=== PATIENT | male | born 1985 | race Caucasian/White ===

== ENCOUNTER 2019-04-18 10:15 | Outpatient (CLI) | payer BC, SELFPAY ==
[2019-04-18 10:58] LABS: Alanine Aminotransferase 36 U/L (4-50); Albumin Level 4.6 g/dL (3.5-5.1); Alkaline Phosphatase 73 U/L (38-126); Aspartate Amino Transferase 32 U/L (17-59); Bilirubin,Total 0.5 mg/dL (0.2-1.3); Blood Urea Nitrogen 15 mg/dL (9-20); Calcium 9.3 mg/dL (8.4-10.2); Carbon Dioxide 28 mmol/L (22-30); Chloride 99 mmol/L (98-107); Cholesterol 197 mg/dL (0-200); Estimated Glomerular Filt Rate > 60; Glucose 108 mg/dL (75-110); HDL Direct 48 mg/dL; Potassium 4.1 mmol/L (3.4-5.0); Sodium 137 mmol/L (137-145); Triglycerides 121 mg/dL (<150)
[2019-04-18 11:08] LABS: LDL Cholesterol Direct 130 mg/dL
[2019-04-20 05:00] LABS: GGT 14 U/L (3-90)
== END 2019-04-18 10:16 | disposition home or self-care (01) ==
PROVIDERS: PCP Family Medicine; Visit Provider Nurse Practitioner Family
DX: R74.0 Nonspecific elevation of levels of transaminase and lactic acid dehydrogenase [LDH] (principal)
CPT/HCPCS: 36415; 80053; 80061; 82977

== ENCOUNTER → 2019-04-24 10:44 | Outpatient (CLI) | payer BC, SELFPAY ==
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
== END ==
PROVIDERS: PCP Family Medicine; Visit Provider Nurse Practitioner Family
DX: Z87.820 Personal history of traumatic brain injury (principal); Z09 Encounter for follow-up examination after completed treatment for conditions other than malignant neoplasm
CPT/HCPCS: 70470; Q9967

== ENCOUNTER 2019-05-04 13:54 | Outpatient (CLI) | payer BC, SELFPAY ==
[2019-05-08 14:10] LABS: Lyme Disease Ab (IgM), Blot Negative (Negative); Lyme Disease Ab(IgG), Blot Negative (Negative)
== END 2019-05-04 13:55 | disposition home or self-care (01) ==
LOC: ANHLAB 13:56
PROVIDERS: PCP Family Medicine; Visit Provider Nurse Practitioner Family
DX: G25.81 Restless legs syndrome (principal); Z86.19 Personal history of other infectious and parasitic diseases; R53.83 Other fatigue
CPT/HCPCS: 36415; 82607; 86617

== ENCOUNTER 2019-05-31 08:38 | Outpatient (CLI) | payer BC, SELFPAY ==
--- NOTE | 2019-05-31 11:00 | NEURO_ITS ---
Patient Number: [id number] Impression: # Complains of restless leg syndrome and pain. # Normal nerve conduction study including F-waves. # Normal needle/EMG exam without myotonia or denervation potentials. Nerve Conduction Studies Anti Sensory Summary Table Stim Site NR Peak (ms) P-T Amp (?V) Site1 Site2 Delta-P (ms) Dist (cm) Harrison (m/s) Left Sup Fibular Anti Sensory (Ant Lat Mall) 14 cm 3.9 11.3 14 cm Ant Lat Mall 3.9 16.0 41 Right Sup Fibular Anti Sensory (Ant Lat Mall) 14 cm 3.7 11.9 14 cm Ant Lat Mall 3.7 16.0 43 Left Sural Anti Sensory (Lat Mall) Calf 3.8 16.2 Calf Lat Mall 3.8 16.0 42 Right Sural Anti Sensory (Lat Mall) Calf 3.9 20.5 Calf Lat Mall 3.9 16.0 41 Motor Summary Table Stim Site NR Onset (ms) O-P Amp (mV) Site1 Site2 Delta-0 (ms) Dist (cm) Harrison (m/s) Left Peroneal Motor (Vastus Med) Ankle 5.5 2.3 Popit Ankle 8.7 41.0 47 Popit 14.2 2.3 Right Peroneal Motor (Vastus Med) Ankle 5.6 2.5 Popit Ankle 6.9 37.0 54 Popit 12.5 2.5 Left Tibial Motor (Abd Valdez Brev) Ankle 5.2 3.9 Knee Ankle 8.3 42.0 51 Knee 13.5 5.0 Right Tibial Motor (Abd Valdez Brev) Ankle 5.0 7.0 Knee Ankle 8.0 43.0 54 Knee 13.0 5.9 F Wave Studies NR F-Lat (ms) L-R F-Lat (ms) Left Peroneal (Mrkrs) (EDB) 52.39 0.43 Right Peroneal (Mrkrs) (EDB) 52.82 0.43 Left Tibial (Mrkrs) (Abd Hallucis) 51.88 0.47 Right Tibial (Mrkrs) (Abd Hallucis) 51.40 0.47 EMG Side Muscle Nerve Root Ins Act Fibs Amp Dur Recrt Comment Right AntTibialis Dp Br Fibular L4-5 Nml Nml Nml Nml Nml Right Gastroc Tibial S1-2 Nml Nml Nml Nml Nml Right Fibularis Long Sup Br Fibular L5-S1 Nml Nml Nml Nml Nml Right Flex Dig Long Tibial L5-S2 Nml Nml Nml Nml Nml Right Ext Dig Brev Dp Br Fibular L5, S1 Nml Nml Nml Nml Nml Left AntTibialis Dp Br Fibular L4-5 Nml Nml Nml Nml Nml Left Gastroc Tibial S1-2 Nml Nml Nml Nml Nml Left Fibularis Long Sup Br Fibular L5-S1 Nml Nml Nml Nml Nml Left Flex Dig Long Tibial L5-S2 Nml Nml Nml Nml Nml Left Ext Dig Brev Dp Br Fibular L5, S1 Nml Nml Nml Nml Nml Right QuadratusFem QuadFemoris L4-5, S1 Nml Nml Nml Nml Nml Left QuadratusFem QuadFemoris L4-5, S1 Nml Nml Nml Nml Nml MTDD
== END 2019-05-31 08:39 | disposition home or self-care (01) ==
PROVIDERS: PCP Family Medicine; Visit Provider Nurse Practitioner Family
DX: R20.2 Paresthesia of skin (principal)
CPT/HCPCS: 95886; 95910

== ENCOUNTER 2019-11-06 15:26 | Emergency (ER) | payer BC, SELFPAY ==
--- NOTE | ~2019-11-06 | XR_ITS ---
EXAMINATION: XR foot RT min 3V EXAM DATE: 11/06/2019 15:52 INDICATION: No known recent injury provided at this time. Pain of the right foot, heel. TECHNIQUE: Right foot dorsoplantar, lateral and oblique projections obtained and reviewed. There is no prior study for comparison. FINDINGS: Right metatarsal bones unremarkable. No periosteal reaction or band of sclerosis to sugge st subacute stress fracture. There are no bony erosions identified. There are no acute fractures or d islocations identified. There is no subcutaneous gas. The soft tissue is unremarkable. There are no radiopaque foreign bodies. IMPRESSION: 1. Unremarkable right foot exam. Reviewed, dictated and finalized at location B.
--- NOTE | 2019-11-06 15:33 | ED.GENADULT ---
HPI - General Adult General Chief complaint: Extremity Injury, Lower Stated complaint: R/foot pain Time Seen by Provider: 11/06/19 15:40 Source: patient and RN notes reviewed Mode of arrival: ambulatory Limitations: no limitations History of Present Illness HPI narrative: This is a 34 years old male presents to the office for an evaluation of right foot pain for a few month. Pain is continue to worsen which prompt him to seek evaluation. In used to be intermittent and now more constant. Pain is worse in the morning. Denies no known trauma or injury prior to pain. Admits to history of rolling his ankles a lot but never had a broken ankle or foot in the past. He have never had this pain before. He did not take anything for pain. Related Data Allergies Allergy/AdvReac Type Severity Reaction Status Date / Time Sulfa (Sulfonamide Allergy Severe ANAPHYLACTIC Verified 09/26/19 09:43 Antibiotics) REACTION Review of Systems Review of Systems: Narrative: CONSTITUTIONAL: Denies fever ENT: Denies rhinorrhea, congestion, sore throat, otalgia. CARDIOVASCULAR: Denies chest pain, palpitation RESPIRATORY: Denies dyspnea, wheezing, cough GASTROINTESTINAL: Denies abdominal pain, nausea, vomiting, diarrhea. SKIN: Denies rash/lesions MUSCULOSKELETAL: Reports right heel pain that goes up to his ankle with tingling/numbness sensation on his toes. Denies back injury/trauma. NEUROLOGIC: Denies lightheaded All other systems reviewed are negative, except as documented in HPI. [facility] Past Medical History Medical History Fracture of temporal bone GERD (gastroesophageal reflux disease) HTN (hypertension) Migraines Pneumonia Surgical History Surgical History Hx of eye surgery Family History Family History Other Diabetes mellitus Family history of cardiovascular disease Hypertension Social History Social History Smoking status: Current some day smoker Alcohol intake: current Gender identity (if verbalized by the patient): Male Comments At time of signature, I agree with nursing past medical, surgical, social and family history. There is no relevant family history pertinent to the presenting complaint. Exam Narrative: Exam Narrative: GENERAL: This is a well-nourished, well-developed patient, in no apparent distress. CARDIOVASCULAR: Regular rate and rhythm without murmurs, gallops, or rubs. RESPIRATORY: Clear to auscultation. Breath sounds equal bilaterally. No wheezes, rales, or rhonchi. GASTROINTESTINAL: Abdomen soft, non-tender, nondistended. Bowel sounds are active. No hepato-splenomegaly, or palpable masses. No guarding. SKIN: warm, intact with no suspicious lesions or rash, good texture and turgor. NEURO: awake, alert, and oriented to person, place and time. There were no obvious focal neurologic abnormalities. Steady gait EXTREMITIES: Normal range of motion. No edema. The Affected lateral and medial ankle not swollen. Dorsal foot normal without obvious deformity/swelling. Heel is tender to palpation without obvious callus/corn/blister. Plantar and dorsal flexion of foot is intact. The skin is intact. Goldie Coma Scale Eye Opening: Spontaneous 4 Goldie Coma Scale Motor: Obeys Commands 6 Goldie Coma Scale Verbal: Oriented 5 Course Vital Signs Vital signs: Vital Signs Temperature 99.2 F 11/06/19 15:35 Pulse Rate 76 11/06/19 15:35 Respiratory Rate 11/06/19 15:35 Blood Pressure 168/109 H 11/06/19 15:35 Pulse Oximetry 100 11/06/19 15:35 Temperature 99.2 F 11/06/19 15:35 Pulse Rate 76 11/06/19 15:35 Respiratory Rate 11/06/19 15:35 Blood Pressure 168/109 H 11/06/19 15:35 Pulse Oximetry 100 11/06/19 15:35 Medical Decision Making [facility] Narrative Medical
[2019-11-06 15:35] VITALS: BP 168/109; PULSE 76; RESP 20; TEMP 37.3; O2SAT 100
== END 2019-11-06 16:11 | disposition home or self-care (01) ==
PROVIDERS: Emergency Provider Nurse Practitioner; PCP Family Medicine
DX: M79.644 Pain in right finger(s) (principal); F17.200 Nicotine dependence, unspecified, uncomplicated; K21.9 Gastro-esophageal reflux disease without esophagitis; I10 Essential (primary) hypertension
CPT/HCPCS: 73630; 99213; G0463

== ENCOUNTER 2019-11-28 18:00 | Emergency (ER) | payer BC, SELFPAY ==
[2019-11-28 18:10] VITALS: BP 144/102; PULSE 81; RESP 20; TEMP 37.2; O2SAT 98
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
== END 2019-11-28 18:32 | disposition home or self-care (01) ==
PROVIDERS: Emergency Provider Nurse Practitioner; PCP Family Medicine
DX: S29.012A Strain of muscle and tendon of back wall of thorax, initial encounter (principal); S16.1XXA Strain of muscle, fascia and tendon at neck level, initial encounter; W01.0XXA Fall on same level from slipping, tripping and stumbling without subsequent striking against object, initial encounter; F17.200 Nicotine dependence, unspecified, uncomplicated
CPT/HCPCS: 99213; G0463

== ENCOUNTER 2019-11-29 13:52 | Outpatient (CLI) | payer BC, SELFPAY ==
--- NOTE | ~2019-11-29 | XR_ITS ---
XR lumbar spine 2-3V DATE: 11/29/2019 14:24 INDICATION: Back pain. Injury 4 days ago. TECHNIQUE: AP, lateral, coned lateral lumbosacral views COMPARISON: 07/10/2015 lumbar spine FINDINGS: Normal alignment of the lumbar vertebrae. No fracture or bone destruction or spondylolisthe sis. The lumbar and lumbosacral interspaces are well preserved. The lumbar pedicles are intact. The s acroiliac joints are normal. IMPRESSION: Normal examination Reviewed, dictated and finalized at location A. IMPRESSION: Normal examination
== END 2019-11-29 13:53 | disposition home or self-care (01) ==
LOC: ANHIMG 13:58
PROVIDERS: PCP Family Medicine; Visit Provider Nurse Practitioner Family
DX: M54.9 Dorsalgia, unspecified (principal)
CPT/HCPCS: 72100

== ENCOUNTER 2019-12-01 09:45 | Outpatient (CLI) | payer BC, SELFPAY ==
[2019-12-01 10:04] LABS: Hematocrit 45.3 % (42.0-52.0); Hemoglobin 15.3 g/dL (14.0-18.0); Mean Corpuscular HGB Conc 33.8 g/dl (32-36); Mean Corpuscular Hemoglobin 29.7 pg (26-34); Mean Platelet Volume 9.9 fl (7.4-10.4); Platelet Count Result 209 k/mm3 (150-375); Red Blood Count 5.15 M/mm3 (4.6-6.20); Red Cell Distribution Width 12.7 % (11.5-14.5); White Blood Count 4.9 K/mm3 (4.5-10.0)
[2019-12-01 10:06] LABS: Add Urine Microscopic? NO; Appearance Urine Clear (Clear); Bilirubin Urine Negative (Negative); Blood Urine Negative (Negative); Color Urine Yellow (Yellow); Glucose Urine UA Negative (Negative); Ketones Urine Negative (Negative); Leukocyte Esterase Ur Negative LEU/UL (Negative); Nitrate Urine Negative (Negative); Protein Urine Negative (Negative); Specific Grav Ur 1.028 (1.001-1.035); Urobilinogen Urine Negative mg/dL (<2.0)
[2019-12-01 10:16] LABS: Anion Gap 5 mmol/L (8-16); Blood Urea Nitrogen 21 mg/dL (9-20); Calcium 8.9 mg/dL (8.4-10.2); Carbon Dioxide 31 mmol/L (22-30); Chloride 102 mmol/L (98-107); Estimated Glomerular Filt Rate > 60; Glucose 98 mg/dL (75-110); Potassium 4.3 mmol/L (3.4-5.0); Sodium 138 mmol/L (137-145)
== END 2019-12-01 09:46 | disposition home or self-care (01) ==
PROVIDERS: PCP Family Medicine; Visit Provider Nurse Practitioner Family
DX: M54.9 Dorsalgia, unspecified (principal); T14.90XA Injury, unspecified, initial encounter
CPT/HCPCS: 36415; 80048; 81003; 85027

== ENCOUNTER 2020-01-30 06:51 | Outpatient (NON) | payer BC, SELFPAY ==
[2020-01-31 00:30] LABS: SARS-CoV-2 RNA PCR Negative
== END 2020-01-30 06:52 ==
LOC: ANHCOVIDDT 07:01
PROVIDERS: PCP Family Medicine; Visit Provider Nurse Practitioner Family
DX: Z20.828 Contact with and (suspected) exposure to other viral communicable diseases (principal)
CPT/HCPCS: 87635; C9803; U0003

== ENCOUNTER 2020-02-10 06:40 | Outpatient (NON) | payer BC, SELFPAY ==
[2020-02-10 23:37] LABS: SARS-CoV-2 RNA PCR Negative
== END 2020-02-10 06:41 ==
LOC: ANHCOVIDDT 06:40
PROVIDERS: PCP Family Medicine; Visit Provider Family Medicine
DX: R68.89 Other general symptoms and signs (principal); Z20.828 Contact with and (suspected) exposure to other viral communicable diseases
CPT/HCPCS: 87635; C9803; U0003

== ENCOUNTER 2020-04-23 11:14 | Outpatient (NON) | payer BC, OTHER, SELFPAY ==
[2020-04-24 00:37] LABS: SARS-CoV-2 RNA PCR Negative
== END 2020-04-23 11:15 ==
LOC: ANHCOVIDDT 11:15
PROVIDERS: PCP Family Medicine; Visit Provider Physician Assistant Medical
DX: Z20.822 Contact with and (suspected) exposure to COVID-19 (principal); R68.89 Other general symptoms and signs
CPT/HCPCS: C9803; U0003; U0005

== ENCOUNTER 2020-10-06 04:14 | Emergency (ER) | payer BC, OTHER, SELFPAY ==
--- NOTE | ~2020-10-06 | CT_ITS ---
EXAMINATION: CT cervical spine wo con DATE: 10/06/2020 05:05 INDICATION: Head injury TECHNIQUE: Computed tomography (CT) of the cervical spine was performed without intravenous contrast. The dose-length product (DLP) was 423.60 mGy-cm. Automated exposure control and iterative reconstruc tion technique were employed. COMPARISON: None FINDINGS: There is no fracture, dislocation, or subluxation. The vertebral body heights, alignment, a nd intervertebral disc spaces are normal. The paravertebral soft tissues are unremarkable. The odonto id is intact. IMPRESSION: 1. No acute osseous abnormality. Reviewed, dictated and finalized at location A.
--- NOTE | ~2020-10-06 | XR_ITS ---
EXAMINATION: XR elbow LT min 3V DATE: 10/06/2020 04:44 INDICATION: Left elbow pain TECHNIQUE: Anteroposterior, two oblique and lateral views of the left elbow were obtained. COMPARISON: None. FINDINGS: Alignment is normal. No fracture or joint effusion. Joint spaces are normal. Soft tissues a re unremarkable. An enthesophyte projects at the dorsal aspect of the ulna. IMPRESSION: 1. No acute osseous abnormality. Reviewed, dictated and finalized at location A.
--- NOTE | ~2020-10-06 | CT_ITS ---
EXAMINATION: CT brain wo con INDICATION: Head injury COMPARISON: 04/24/2019 TECHNIQUE: Standard unenhanced head CT. The dose-length product (DLP) was 605.33 mGy-cm. The mA was a djusted according to patient size. Iterative reconstruction technique was employed. FINDINGS: There is no intracranial hemorrhage, acute infarction, or abnormal mass lesion. The ventric les are normal. There is no abnormal mass effect or midline shift. The oropeza-white matter differentiat ion is normal. The basal cisterns are patent. The orbits are normal. There is mild mucosal thickening of the paranasal sinuses. IMPRESSION: 1. No acute intracranial abnormality. Reviewed, dictated and finalized at location A.
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
[2020-10-06 04:18] VITALS: BP 154/88; PULSE 93; RESP 16; TEMP 36.3; O2SAT 98
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
[2020-10-06 04:51] LABS: Basophils Percent Auto 0.6 % (0.2-1.2); Eosinophils Absolute Auto 0.2 K/mm3 (0-0.3); Eosinophils Percent Auto 3.1 % (0-4.4); Hematocrit 40.7 % (42.0-52.0); Hemoglobin 14.2 g/dL (14.0-18.0); Immature Granulocyte Absolute 0.03 K/mm3 (0.00-0.031); Immature Granulocyte Percent A 0.4 % (0-0.5); Lymphocytes Absolute Auto 2.14 K/mm3 (0.9-3.2); Lymphocytes Percent Auto 30.2 % (18.3-44.2); Mean Corpuscular HGB Conc 34.9 g/dl (32-36); Mean Corpuscular Hemoglobin 30.1 pg (26-34); Mean Corpuscular Volume 86.2 fl (80-100); Mean Platelet Volume 9.5 fl (7.4-10.4); Monocytes Absolute Auto 0.5 K/mm3 (0.1-0.6); Monocytes Percent Auto 7.2 % (2.6-8.5); Neutrophils Absolute Auto 4.1 K/mm3 (1.3-6.7); Neutrophils Percent Auto 58.5 % (45.5-73.1); Platelet Count Result 242 k/mm3 (150-375); Red Blood Count 4.72 M/mm3 (4.6-6.20); Red Cell Distribution Width 12.5 % (11.5-14.5); White Blood Count 7.1 K/mm3 (4.5-10.0)
[2020-10-06 05:00] LABS: Alanine Aminotransferase 33 U/L (4-50); Albumin Level 4.6 g/dL (3.5-5.1); Alkaline Phosphatase 94 U/L (38-126); Anion Gap 14 mmol/L (8-16); Aspartate Amino Transferase 50 U/L (17-59); Bilirubin,Total 0.3 mg/dL (0.2-1.3); Blood Urea Nitrogen 16 mg/dL (9-20); Calcium 8.8 mg/dL (8.4-10.2); Carbon Dioxide 21 mmol/L (22-30); Chloride 106 mmol/L (98-107); Estimated Glomerular Filt Rate > 60; Ethanol 175 mg/dL (<10); Glucose 94 mg/dL (65-110); Potassium 3.6 mmol/L (3.4-5.0); Sodium 141 mmol/L (137-145)
[2020-10-06 05:05] LABS: INR 0.9; Prothrombin Time 11.6 Seconds (11.1-14.7)
[2020-10-06 05:06] LABS: Partial Thromboplastin Time 26.3 SECONDS (22.3-36.8)
[2020-10-06 05:11] LABS: Estimated Glomerular Filt Rate > 60
[2020-10-06 05:12] VITALS: BP 122/77; PULSE 83; RESP 16; O2SAT 97
[2020-10-06 05:14] VITALS: O2SAT 97
[2020-10-06] MEDS: TETANUS,DIPHTHERIA,AC PERTUSSIS ADULT (0.5 ML) BOOSTRIX IM (05:19)
== END 2020-10-06 05:57 | disposition home or self-care (01) ==
LOC: ANHED 05:26
PROVIDERS: Emergency Provider Emergency Medicine; PCP Family Medicine
DX: S50.02XA Contusion of left elbow, initial encounter (principal); S50.312A Abrasion of left elbow, initial encounter; S09.90XA Unspecified injury of head, initial encounter; K21.9 Gastro-esophageal reflux disease without esophagitis; I10 Essential (primary) hypertension; Z87.01 Personal history of pneumonia (recurrent); F17.210 Nicotine dependence, cigarettes, uncomplicated; Z23 Encounter for immunization; V09.20XA Pedestrian injured in traffic accident involving unspecified motor vehicles, initial encounter
CPT/HCPCS: 36415; 70450; 71250; 72125; 73080; 74176; 80053; 80307; 85025; 85610; 85730; 90471; 90715; 99284; A4565

== ENCOUNTER → 2021-01-14 10:03 | Outpatient (CLI) | payer BC, OTHER, SELFPAY ==
--- NOTE | ~2021-01-14 | XR_ITS ---
EXAMINATION: XR lumbar spine 2-3V DATE: 01/14/2021 10:42 INDICATION: Low back pain TECHNIQUE: Anteroposterior and lateral views of the lumbar spine, and cone-down lateral view of the l umbosacral junction were obtained. COMPARISON: 11/29/2019 FINDINGS: There is no fracture, dislocation, or subluxation. The vertebral body heights, alignment, a nd intervertebral disc spaces are normal. The soft tissues are unremarkable. The bowel gas pattern is normal. IMPRESSION: 1. Unremarkable lumbar spine radiographs. Reviewed, dictated and finalized at location A.
== END ==
PROVIDERS: PCP Family Medicine; Visit Provider Nurse Practitioner Family
DX: M54.50 Low back pain, unspecified (principal)
CPT/HCPCS: 72100

== ENCOUNTER → 2021-02-06 08:19 | Outpatient (CLI) | payer BC, OTHER, SELFPAY ==
--- NOTE | ~2021-02-06 | MR_ITS ---
EXAMINATION: MR lumbar spine wo con DATE: 02/06/2021 09:00 INDICATION: Low back pain, unspecified. TECHNIQUE: Magnetic resonance imaging (MRI) of the lumbar spine was performed without intravenous con trast. Sequences included sagittal T2-weighted FSE, sagittal T2-weighted FS FSE, sagittal T1-weighted FSE, and axial T2-weighted FSE. COMPARISON: Lumbar spine radiographs 01/14/2021 FINDINGS: Bone alignment is normal. Vertebral body heights are normal. There is mildly decreased disc height at L4-L5 and L5-S1. The distal spinal cord signal intensity is normal. The conus medullaris i s at T12. The following disc levels are specifically discussed: L1-L2: The disc does not extend beyond the endplate margin. There is mild bilateral facet joint osteo arthritis. There is no neural foraminal stenosis. There is no central canal stenosis. L2-L3: The disc does not extend beyond the endplate margin. There is mild bilateral facet joint osteo arthritis. There is no neural foraminal stenosis. There is no central canal stenosis. L3-L4: The disc does not extend beyond the endplate margin. There is moderate bilateral facet joint o steoarthritis. There is no neural foraminal stenosis. There is no central canal stenosis. L4-L5: The disc is bulging and has an annular fissure. There is severe right and moderate left facet joint osteoarthritis. There is moderate bilateral neural foraminal stenosis. There is mild central ca nal stenosis. L5-S1: The disc is bulging and has an annular fissure. There is mild right and moderate left facet mary int osteoarthritis. There is mild right and moderate left neural foraminal stenosis. There is mild ce ntral canal stenosis. IMPRESSION: 1. Moderate lower lumbar spondylosis. Reviewed, dictated and finalized at location A. DATION LEADER
== END ==
PROVIDERS: Visit Provider Nurse Practitioner Family
DX: M54.50 Low back pain, unspecified (principal); V09.9XXA Pedestrian injured in unspecified transport accident, initial encounter; M47.816 Spondylosis without myelopathy or radiculopathy, lumbar region
CPT/HCPCS: 72148

== ENCOUNTER → 2021-03-28 10:07 | Outpatient (CLI) | payer BC, SELFPAY ==
--- NOTE | ~2021-03-28 | XR_ITS ---
EXAMINATION: XR chest 2V DATE: 03/28/2021 10:23 INDICATION: Wheezing. Chest pain. TECHNIQUE: Frontal and lateral views of the chest were obtained. COMPARISON: Chest CT 10/06/2020, chest 2 views 02/19/2019 FINDINGS: The chest demonstrates clear lungs without pneumonia, pleural effusion, or pneumothorax. Th e heart size is normal. There is a prominent left paracardial fat pad. IMPRESSION: 1. No acute cardiopulmonary disease. Reviewed, dictated and finalized at location A. E LAB ANALYST
== END ==
PROVIDERS: PCP Family Medicine; Visit Provider Nurse Practitioner Family
DX: R06.2 Wheezing (principal)
CPT/HCPCS: 71046

== ENCOUNTER 2022-02-09 08:46 | Outpatient (CLI) | payer BC, SELFPAY ==
--- NOTE | ~2022-02-09 | MR_ITS ---
EXAMINATION: MR lumbar spine wo/w con DATE: 02/09/2022 10:16 INDICATION: Low back pain. TECHNIQUE: Magnetic resonance imaging (MRI) of the lumbar spine was performed without and with 20 mL MultiHance intravenous contrast. COMPARISON: Lumbar spine MRI 02/06/2021 FINDINGS: Bone alignment is normal. Vertebral body heights are normal. There are changes of anterior and posterior fusion procedures from L4 to S1 with discectomies, interbody devices, and pedicle screw s. Intervertebral disc heights are normal. The distal spinal cord signal intensity is normal. The con us medullaris is at T12. The following disc levels are specifically discussed: L1-L2: The disc does not extend beyond the endplate margin. There is no facet joint osteoarthritis. T here is no neural foraminal stenosis. There is no central canal stenosis. L2-L3: The disc does not extend beyond the endplate margin. There is mild right facet joint osteoarth ritis. There is no neural foraminal stenosis. There is no central canal stenosis. L3-L4: There is a left foraminal protrusion. There is mild bilateral facet joint osteoarthritis. Ther e is mild left neural foraminal stenosis. There is no central canal stenosis. L4-L5: There is mild bilateral facet joint hypertrophy. There is mild bilateral neural foraminal sten osis. There is no central canal stenosis. L5-S1: There is mild bilateral facet joint hypertrophy. There is mild bilateral neural foraminal sten osis. There is no central canal stenosis. IMPRESSION: 1. Mild lumbar spondylosis. 2. Anterior and posterior fusion procedures from L4 to S1. Reviewed, dictated and finalized at location A. RINTENDENT SYSTEM OPERATION
== END 2022-02-09 08:47 | disposition home or self-care (01) ==
PROVIDERS: PCP Family Medicine; Visit Provider Neurological Surgery
DX: M47.896 Other spondylosis, lumbar region (principal); Z98.1 Arthrodesis status
CPT/HCPCS: 72158; A9577

== ENCOUNTER 2022-06-05 15:56 | Outpatient (CLI) | payer BC, SELFPAY ==
--- NOTE | ~2022-06-05 | CT_ITS ---
EXAMINATION: CT lumbar spine wo con DATE: 06/05/2022 16:27 INDICATION: Lumbar posterior fusion. TECHNIQUE: Computed tomography (CT) of the lumbar spine was performed without intravenous contrast. A utomated exposure control and iterative reconstruction technique were employed. The dose-length produ ct was 1083.90 mGy-cm. COMPARISON: Lumbar spine MRI 02/09/2022 FINDINGS: There is diffuse hepatic steatosis. Bone alignment is normal. There is mild chronic anterio r wedging of T11-L1 vertebral bodies, likely physiologic. There are changes of anterior and posterior fusion procedures from L4 to S1 with interbody devices and pedicle screws. Intervertebral disc heigh ts are normal. The following disc levels are specifically discussed: L1-L2: The disc does not extend beyond the endplate margin. There is mild bilateral facet joint osteo arthritis. There is no neural foraminal stenosis. There is no central canal stenosis. L2-L3: The disc does not extend beyond the endplate margin. There is mild bilateral facet joint osteo arthritis. There is no neural foraminal stenosis. There is no central canal stenosis. L3-L4: The disc is mildly bulging. There is mild bilateral facet joint osteoarthritis. There is mild bilateral neural foraminal stenosis. There is no central canal stenosis. L4-L5: There is no facet joint hypertrophy. There is mild bilateral neural foraminal stenosis. There is no central canal stenosis. There is posterior decompression. L5-S1: There is no facet joint hypertrophy. There is no neural foraminal stenosis. There is no centra l canal stenosis. There is posterior decompression. IMPRESSION: 1. Mild lumbar spondylosis. 2. Anterior and posterior fusion procedures from L4 to S1. Reviewed, dictated and finalized at location A.
== END 2022-06-05 15:57 | disposition home or self-care (01) ==
PROVIDERS: PCP Family Medicine; Visit Provider Neurological Surgery
DX: M47.816 Spondylosis without myelopathy or radiculopathy, lumbar region (principal); Z98.1 Arthrodesis status
CPT/HCPCS: 72131

== ENCOUNTER → 2023-03-09 09:47 | Outpatient (CLI) | payer BC, SELFPAY ==
--- NOTE | ~2023-03-09 | XR_ITS ---
Lumbosacral Spine: AP and lateral views Clinical History: Postoperative COMPARISON: 01/14/2021 Findings: The normal lordotic curve is maintained. No acute fracture or subluxation seen. There is po sterior interbody fusion extending from L4 through S1. Remaining disc spaces are preserved. The sacro iliac joints are normally outlined. Impression: Posterior and interbody fusion from L4 through S1. Reviewed, dictated and finalized at location . 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
== END ==
PROVIDERS: PCP Family Medicine; Visit Provider Nurse Practitioner Family
DX: M43.27 Fusion of spine, lumbosacral region (principal); Z98.890 Other specified postprocedural states
CPT/HCPCS: 72100

== ENCOUNTER → 2023-04-01 08:19 | Outpatient (CLI) | payer BC, SELFPAY ==
--- NOTE | ~2023-04-01 | MR_ITS ---
MRI of the lumbar spine Clinical History: Back pain, postprocedural Technique: Axial T2-weighted images, and sagittal T1-weighted, T2-weighted, and STIR images were acqu ired. Following intravenous administration of 18 cc MultiHance gadolinium, T1-weighted fat-sat imagin g was performed in the axial and sagittal planes. COMPARISON: 02/09/2022 Findings: There is posterior interbody fusion from L4 through S1, with bilateral rods, transverse and screws, and disc fusion devices present. There are associated laminectomy defects. No acute fracture or sublocation seen. No suspicious bone marrow signal abnormality seen. At L1-L2, L2-L3, L3-L4, there is mild facet arthropathy without disc bulge or herniation. No central canal stenosis or neural foraminal narrowing at these levels. At L4-L5, there is no disc bulge or herniation. There is posterior decompression. No spinal canal garth nosis. Bilateral neural foramina are preserved. At L5-S1, there is no disc bulge or herniation. There is no spinal canal stenosis. Probable mild bila teral neural foraminal narrowing. Paravertebral soft tissues are unremarkable. No abnormal postcontrast enhancement identified. Impression: Posterior and interbody fusion from L4 through S1, as above, unchanged. Minimal degenerative change, as above. Reviewed, dictated and finalized at [facility]. E OVERNIGHT MONITOR Impression: Posterior and interbody fusion from L4 through S1, as above, unchanged. Minimal degenerative change, as above.
== END ==
PROVIDERS: PCP Nurse Practitioner Family; Visit Provider Nurse Practitioner Family
DX: M54.32 Sciatica, left side (principal); Z98.890 Other specified postprocedural states; Z98.1 Arthrodesis status
CPT/HCPCS: 72158; A9577

== ENCOUNTER 2023-07-22 12:43 | Outpatient (CLI) | payer BC, SELFPAY ==
--- NOTE | ~2023-07-22 | XR_ITS ---
XR lumbar spine min 4V DATE: 07/22/2023 13:29 INDICATION: Arthrodesis status TECHNIQUE: Standing AP and lateral views. Standing flexion and extension lateral views. COMPARISON: 07/22/2023 CT lumbar spine FINDINGS: Status post posterior and interbody surgical fusion at L4-S1. No hardware fracture or displ acement is noted. Slight dextroscoliosis of the lumbar spine. No fracture or bone destruction is evident. The included lower thoracic and lumbar pedicles appear in tact. No instability is demonstrated on flexion or extension. L1-2, L2-3 and L3-4 interspaces are well preserved. Normal alignment at the sacroiliac joints. IMPRESSION: Status post posterior and interbody surgical fusion L4-S1 Reviewed, dictated and finalized at location A.
--- NOTE | ~2023-07-22 | CT_ITS ---
EXAMINATION: CT lumbar spine wo con DATE: 07/22/2023 12:54 INDICATION: Arthrodesis status. Numbness in the toes. TECHNIQUE: Computed tomography (CT) of the lumbar spine was performed without intravenous contrast. A utomated exposure control and iterative reconstruction technique were employed. The dose-length produ ct was 755.82 mGy-cm. COMPARISON: CT lumbar spine 06/05/2022 FINDINGS: Bone alignment is normal. There is mild chronic anterior wedging of T12 vertebral body. The re are changes of anterior and posterior fusion procedures from L4 to S1 with interbody devices and p edicle screws. Lucencies around the S1 screws measure less than 2 mm in thickness. Intervertebral dis c heights are normal. There is development of osseous central canal stenosis in lumbar spine. The fol lowing disc levels are specifically discussed: L1-L2: The disc does not extend beyond the endplate margin. There is mild bilateral facet joint osteo arthritis. There is no neural foraminal stenosis. There is no central canal stenosis. L2-L3: The disc does not extend beyond the endplate margin. There is mild bilateral facet joint osteo arthritis. There is no neural foraminal stenosis. There is no central canal stenosis. L3-L4: The disc is bulging. There is mild bilateral facet joint osteoarthritis. There is mild bilater al neural foraminal stenosis. There is no central canal stenosis. L4-L5: There is no facet joint hypertrophy. There is mild right neural foraminal stenosis with director experimental medicine ior decompression. There is no central canal stenosis. There is posterior decompression of the centra l canal L5-S1: There is no facet joint hypertrophy. There is no neural foraminal stenosis. There is no centra l canal stenosis. There is posterior decompression. IMPRESSION: 1. Stable mild lumbar spondylosis. 2. Anterior and posterior fusion procedures from L4 to S1. Reviewed, dictated and finalized at location E.
== END 2023-07-22 12:44 ==
LOC: GOSHIMG 12:43
PROVIDERS: PCP Nurse Practitioner Family; Visit Provider Neurological Surgery
DX: M43.06 Spondylolysis, lumbar region (principal); Z98.1 Arthrodesis status
CPT/HCPCS: 72110; 72131

== ENCOUNTER 2023-11-17 08:48 | Outpatient (CLI) | payer BC, SELFPAY ==
--- NOTE | ~2023-11-17 | XR_ITS ---
EXAMINATION: XR chest 2V 11/17/2023 09:06 INDICATION: Preop. Hypertension. PROCEDURE: 2 view chest COMPARISON: Comparison to multiple prior studies sequentially, with oldest reviewed study dated 05/2016. FINDINGS: The lungs are clear. The cardiomediastinal silhouette is within normal limits. There are no pleural effusions. There is no pneumothorax suspected. IMPRESSION: 1: NO ACUTE CARDIOPULMONARY DISEASE. Reviewed, dictated and finalized at location B.
--- NOTE | ~2023-11-17 | US_ITS ---
Abdominal Sonogram: Real-time sonographic imaging of the abdomen was performed. Clinical History: Abnormal serum enzyme levels Findings: The liver appears echogenic, with no evidence of mass lesion or bile duct dilatation. Main portal vein demonstrates normal direction of flow. The spleen is normal in size without evidence of focal lesion. The gallbladder is well distended, and appears normal with no evidence of gallstone or wall thickening. The common bile duct measures 4 mm. The visualized pancreas, aorta, and IVC are un remarkable. The right kidney measures 9.7 cm in length and the left kidney measures 11.3 cm. There is no hydronephrosis or renal calculus. Impression: Diffuse fatty infiltration of the liver. Reviewed, dictated and finalized at location M. Impression: Diffuse fatty infiltration of the liver.
== END 2023-11-17 08:49 ==
LOC: GOSHIMG 08:49
PROVIDERS: PCP Family Medicine; Visit Provider Nurse Practitioner Adult Health
DX: Z01.818 Encounter for other preprocedural examination (principal); K76.0 Fatty (change of) liver, not elsewhere classified; R74.8 Abnormal levels of other serum enzymes
CPT/HCPCS: 71046; 76700

== ENCOUNTER 2023-12-23 21:42 | Emergency (ER) | payer BC, SELFPAY ==
--- NOTE | 2023-12-23 21:44 | PC.NURSE ---
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 Patient was advised that the longest patient waiting in the waiting room was four hours at the moment. Patient states are you kidding me? I can't fucking take this anymore. . Patient asked if he was better off going somewhere else . Patient was advised that nursing staff cannot advised if he should leave or not and that if he would like to be seen by a doctor that we would be more than glad to evaluate patient. Patient left ED with cane and steady gait.
== END 2023-12-23 22:18 | disposition left against medical advice (07) ==
PROVIDERS: PCP Family Medicine
DX: Z53.21 Procedure and treatment not carried out due to patient leaving prior to being seen by health care provider (principal)
CPT/HCPCS: 99199

== ENCOUNTER 2024-04-03 13:06 | Outpatient (CLI) | payer BC, SELFPAY ==
--- NOTE | ~2024-04-03 | XR_ITS ---
3 VIEWS LUMBAR SPINE Ordering provider: Carrol Caceres MD History: . S32.009K - Unspecified fracture of unspecified lumbar miguel angel... . Comparison: None. FINDINGS: VERTEBRAL BODIES:Postoperative changes at the level of L4, L5 and S1. No visible fracture or subluxa tion. DISK SPACES: Disc spacers at the levels of L4-L5 and L5-S1. SOFT TISSUES: Normal. IMPRESSION: No acute osseous abnormality lumbar spine. Postoperative changes. Reviewed, dictated and finalized at location A. STERED NURSE MIDWIFE
== END 2024-04-03 13:07 | disposition home or self-care (01) ==
PROVIDERS: PCP Family Medicine; Visit Provider Neurological Surgery
DX: S32.009K Unspecified fracture of unspecified lumbar vertebra, subsequent encounter for fracture with nonunion (principal); Z98.1 Arthrodesis status; T75.89XD Other specified effects of external causes, subsequent encounter; X58.XXXD Exposure to other specified factors, subsequent encounter
CPT/HCPCS: 72100

== ENCOUNTER 2024-09-13 13:18 | Outpatient (CLI) | payer BC, SELFPAY ==
--- NOTE | ~2024-09-13 | XR_ITS ---
EXAM/ PROCEDURE: XR lumbar spine 2-3V - 09/13/2024 13:20 CDT HISTORY: 39 years old Male with Z98.1 - Arthrodesis status COMPARISON: None available TECHNIQUE: Three view(s) FINDINGS/ IMPRESSION: L4 S1 posterior spinal fusion with intact hardware and no loosening. There are no fractures or dislocations.Intervertebral disc spaces are within normal limits. Reviewed, dictated and finalized at location A.
== END 2024-09-13 13:19 | disposition home or self-care (01) ==
PROVIDERS: PCP Neurological Surgery; Visit Provider Neurological Surgery
DX: M54.42 Lumbago with sciatica, left side (principal); G89.29 Other chronic pain; Z98.1 Arthrodesis status
CPT/HCPCS: 72100

== ENCOUNTER 2024-09-27 10:27 | Outpatient (CLI) | payer BC, SELFPAY ==
--- OUTSIDE RECORDS SUMMARY | 2024-09-27 10:36 | XMS_ITS | Patient Health Record ---
Author Organization [facility] [employer] Address [address] [facility] [address] [place] [address] Care Team Providers Care Mailroom Personnel Name Role Phone RAJI SHULTZ, [facility] Primary Care Provider Unavail able Jessica Lombardi APRN Unavailable Unavailable Iman Glasgow Unavailable [phone] Ofelia Lyon Unavailable [phone] Allergies Allergen (clinical drug ingredient) Drug/Non Drug Allergy documented on EMR Reaction Allergy Type Onset Date Status iohexol Iohexol Unknown Drug Allergy Active Substance with sulfonamide structure and antibacterial mechanism of action (substance) Sulfa Antibiotics Unknown Drug Allergy Active Reason For Referral No Information Medications Medication SIG (Take, Route, Frequency, Duration) Notes Start Date End Date Status DULoxetine HCl 30 MG TAKE 1 CAPSULE BY MOUTH DAILY Oral; Duration: 30 Days Not-Taking hydrOXYzine HCl 25 MG TAKE 1 TABLET BY MOUTH THREE TIMES DAILY NEEDED FOR ANXIETY Oral; Duration: 10 Days Active Lisinopril 20 MG Oral; Duration: 90 Days Active FLUoxetine HCl 40 MG Oral; Duration: 90 Days Not-Taking Vilazodone HCl 20 MG 1 tablet with food Oral Once a day; Duration: 30 days d/c 10mg Active Cyclobenzaprine HCl 10 MG TAKE 1 TABLET BY MOUTH THREE TIMES DAILY NEEDED FOR MUSCLE SPASM Oral; Duration: 30 Days Active Social History Tobacco Use: Social History Observation Description Date Details (start date - stop date) Unknown Sex Assigned At : Social History Observation Description Sex Assigned At Male Tobacco Control (Standard) Question Answer Notes Tobacco use: Uses tobacco in other forms AUDIT-C (Standard) Question Answer Notes Did you have a drink contain ing alcohol in the past year? Yes How often did you have six o r more drinks on one occasion in the past year? 2 to 4 times a month (2 points) How many drinks did you have on a typical day when you were drinking in the past year? 3 or 4 drinks (1 point) How often did you have a dri nk containing alcohol in the past year? Daily or almost daily (4 points) Problems Problem Type SNOMED Code ICD Code Onset Dates Problem Status W/U Status Risk Notes Problem Generalized anxiety disorder (10045830) Generalized anxiety disorder (F41.1) Active confirmed Problem Chronic insomnia (272795185) Chronic insomnia (F51.04) Active confirmed Problem Panic disorder (640618510) Panic attacks (F41.0) Active confirmed Problem Moderate recurrent major depression (53611134) Moderate recurrent major depression (F33.1) Active confirmed Problem Problematic consumption of alcohol (F10.90) Active confirmed Vital Signs Heart Rate 80 /min 11/29/2023 Height-cm 172.72 cm 11/29/2023 Blood pressure diastolic 88 mm Hg 11/29/2023 Weight-kg 97.98 kg 11/29/2023 Height 68 in 11/29/2023 Blood pressure systolic 127 mm Hg 11/29/2023 Weight 216 lbs 11/29/2023 BMI 32.84 kg/m2 11/29/2023 Encounters Encounter Location Date Provider Diagnosis [facility] [employer] [address] [place] [address] [address] 11/29/2023 Iman Glasgow Moderate recurrent major depression F33.1 ; Generalized anxiety disorder F41.1 ; Panic attacks F41.0 ; Chronic insomnia F51.04 and Problematic consumption of alcohol F10.90 [facility] [employer] [address] [address] 02/07/2024 Ofelia Lyon Assessments Encounter Date Diagnosis (ICD Code) Assessment Notes Treatment Notes Treatment Clinical Notes Section Notes 11/29/2023 Moderate recurrent major depression (ICD-10 - F33.1) increase viibryd to 20mg daily recommend therapy recommend decrease alcohol use Dx: MDD, CHLOE, chronic insomnia, panic attacks, problem alcohol use-counseled to decrease Diff: OCD/OCPD context chronic pain; thinks a lot is related to pain note: Hx head injury/fracture 2019 with small brain bleed -alcohol education, negative impact mood, sleep, safety, etc discuss dx and tx considerations and treatment options. Does not feel antidepressants are helpful but can increase viibryd-is low dose and has not had side effects, discuss alternate/adjunct, ie seroquel, abilify pros/cons. he is not sure what may have tried in past. or both changes but harder to determine effects/side effects. he would like to increase viibryd first, review r/b/se, if no benefit may try abilify next. Also complicated by planned back surgery dec 21 encourage therapy, for coping with life stressors, address thought patterns, etc.; not interested currently f/u 6 wks, earlier if concerns 11/29/2023 Generalized anxiety disorder (ICD-10 - F41.1) as above cont minimize caffeine 11/29/2023 Panic attacks (ICD-10 - F41.0) as above 11/29/2023 Chronic insomnia (ICD-10 - F51.04) impacted by pain treat mood/anxiety discuss negative impact of alcohol on sleep practice better sleep hygiene-given handout 11/29/2023 Problematic consumption of alcohol (ICD-10 - F10.90) decrease alcohol, do not mix with other medications, emphasis pain pills Recommend decreasing alcohol use as it may be negatively impacting mood, anxiety, sleep, relationships, behavior/safety , etc. Consider treatment program, AA. Reviewed that if drinking significant amount, stopping cold turkey could cause serious, even fatal, withdrawal. May need to decrease slowly, or if have withdrawal sx when not drinking, present to hospital for evaluation to safely detox from alcohol. 11/29/2023 Other Learning About Alcohol Use Disorder material was published, 9 Ways to Cut Back on Drinking material was published, Vilazodone Oral Tablet (VILAZODONE - ORAL) [FDB] material was published, Learning About Depression material was published, Learning About How to Get Help During a Mental Health Crisis material was published, Learning About Anxiety Disorders material was published, Insomnia: Care Instructions material was published Plan Of Treatment No Information Insurance Providers Payer Name Payer Address Payer Phone Subscriber Number Group Number Insured Name Patient Relationship to Insured Coverage Start Date Coverage End Date [employer] [address] [place] [address] [id number] Jose Conley Self - patient is the insured Medical (General) History Medical History History ICD Code GERD HTN Migraines Pneumonia Past Psychiatric History: Anxiety Disord er,Panic Disorder Surgical History Surgery Date(Month/Year) lower lumbar surgery eye surgery
--- OUTSIDE RECORDS SUMMARY | 2024-09-27 10:36 | XMS_ITS | Clinical Summary ---
Author Organization [facility] Address [address] [place] [address] Care Team Providers Care Concept Artist Name Role Phone Celso Pugh MD Primary Care Provider [phone] Allergies Active Allergy Reactions Criticality Noted Date Comments Bee Venom Anaphylaxis High 12/08/2023 Iohexol Hives 12/08/2023 Sulfa Antibiotics Swelling 02/21/2018 Medications vilazodone (VIIBRYD) 20 MG tabletIndications:D epression Take 1 tablet by mouth daily. Indications: Depression Take with food Active Albuterol Sulfate, sensor, (PROAIR DIGIHALER) 108 (90 Base) MCG/ACT AEROSOL POWDER, BREATH ACTIVATEDIndication s:Asthma Inhale 1 puff into the lungs every 4 (four) hours as needed. Indications: Asthma Active esomeprazole (NEXIUM) 20 MG capsuleIndications: Nonerosive Gastroesophagel Reflux Disease Take 1 capsule by mouth daily. Indications: Nonerosive GERD Active Vitamin D3 (VITAMIN D) 50 mcg tabletIndications:V itamin and/or Mineral Deficiency Take 1 tablet by mouth daily. Indications: Vitamin and/or Mineral Deficiency Active magnesium oxide (MAG-OX) 250 MG tabletIndications:V itamin and/or Mineral Deficiency Take 1 tablet (250 mg total) by mouth daily. Indications: Vitamin and/or Mineral Deficiency Active Multiple Vitamin (MULTIVITAMIN ADULT OR)Indications:Diya min and/or Mineral Deficiency Take 1 tablet by mouth daily. Indications: Vitamin and/or Mineral Deficiency Active hydrOXYzine (VISTARIL) 25 MG capsuleIndications: Anxiety Take 1 capsule by mouth 3 (three) times daily as needed for Anxiety. Indications: Feeling Anxious Active lisinopril (PRINIVIL) 20 MG tabletIndications:H ypertension Take 1 tablet by mouth daily. Indications: High Blood Pressure Active oxyCODONE immediate release (ROXICODONE) 5 MG immediate release tabletIndications:A cute Pain < 7 Day Supply Take 1-2 tablets (5-10 mg total) by mouth every 6 (six) hours as needed (moderate to severe pain). Indications: Acute Pain < 7 Day Supply 20 tablet 12/25/19 24 Active lidocaine 4 % patchIndications:Pa in Place 1 patch onto the skin daily. Remove & Discard patch within 12 hours. 30 patch 12/26/19 24 Active methocarbamol 1000 MG TabIndications:Musc le Spasm Take 1,000 mg by mouth every 8 (eight) hours as needed. 30 tablet 12/25/19 24 Active polyethylene glycol (GLYCOLAX) 17 GM/SCOOP powderIndications:C onstipation Take 17 g by mouth 2 (two) times daily. 510 g 12/25/19 24 Active naloxone (NARCAN) 4 MG/0.1ML nasal sprayIndications:Op ioid Dependence 1 spray by Nasal route as needed for Opioid reversal. may repeat every 2 to 3 minutes in alternating nostrils until medical assistance becomes available 1 each 12/25/19 24 025 Active Active Problems Problem Noted Date Diagnosed Date Intractable pain 12/24/2023 Pseudoarthrosis of lumbar spine 12/22/2023 Family History Medical History Relation Comments Heart Disease Father Relation Status Comments Father Alive Mother Alive Social History Tobacco Use Types Packs/Day Years Used Date Smoking Tobacco: Never Smokeless Tobacco: Current Chew Tobacco Cessation:Ready to Q uit: Not Asked; Counseling Given: Not Answered Alcohol Use Standard Drinks/Week Comments Yes 5 (1 standard drink = 0.6 oz pur e alcohol) B1300 Health Literacy Answer Date Recor ded How often do you need to hav e someone help you when you read instructions, pamphlets, or other written material from your doctor or pharmacy? Never 12/22/2023 [facility] Utilities Answer Date Recorded In the past 12 months has [facility] [employer], gas, oil, or water company threatened to shut off services in your home? No 12/24/2023 Humiliation, Afraid, Rape, and Kick questionnair e Answer Date Recorded Within the last year, have y ou been afraid of your partner or ex-partner? No 12/24/2023 Within the last year, have y ou been humiliated or emotionally abused in other ways by your partner or ex-partner? No Within the last year, have y ou been kicked, hit, slapped, or otherwise physically hurt by your partner or ex-partner? No 12/24/2023 Within the last year, have y ou been raped or forced to have any kind of sexual activity by your partner or ex-partner? No 12/24/2023 [facility] Answer Date Recorded Frequency of Alcohol Consumption Never 02/21/2018 Average Number of Drinks Not on file 018 Frequency of Binge Drinking Not on file 05/2017 Overall Financial Resource Strain (CARDIA) Answe r Date Recorded How hard is it for you to pa y for the very basics like food, housing, medical care, and heating? Not hard at all 12/24/2023 [facility] - Occupational Stress Questionnaire Answer Date Recorded Do you feel stress - tense, restless, nervous, or anxious, or unable to sleep at night because your mind is troubled all the time - these days? Not at all 12/22/2023 Exercise Vital Sign Answer Date Recorde d On average, how many days pe r week do you engage in moderate to strenuous exercise (like a brisk walk)? 7 days 12/22/2023 On average, how many minutes do you engage in exercise at this level? 60 min 12/22/2023 Hunger Vital Sign Answer Date Recorded Within the past 12 months, y ou worried that your food would run out before you got the money to buy more. Never true 12/24/19 24 Within the past 12 months, t he food you bought just didn't last and you didn't have money to get more. Never true 12/24/2023 PRAPARE - Transportation Answer Date Re corded In the past 12 months, has l ack of transportation kept you from medical appointments or from getting medications? No 06/2023 In the past 12 months, has l ack of transportation kept you from meetings, work, or from getting things needed for daily living? No 12/24/2023 Housing Stability Vital Sign Answer Rell e Recorded In the last 12 months, was t here a time when you were not able to pay the mortgage or rent on time? No 12/24/2023 In the past 12 months, how m any times have you moved where you were living? 0 12/24/2023 At any time in the past 12 m [facility], were you homeless or living in a long-term (including now)? No 12/24/2023 Sex and Gender Information Value Date Recorded Sex Assigned at Not on file Legal Sex Male 4:52 PM CDT Gender Identity Not on file Sexual Orientation Not on file Last Filed Vital Signs Vital Sign Reading Time Taken Comments Blood Pressure 136/70 01/12/2024 11:08 AM CDT Pulse 88 01/12/2024 11:08 AM CDT Temperature 36.2 C (97.2 F) 01/12/2024 11:08 AM CDT Respiratory Rate 18 01/12/2024 11:08 AM CDT Oxygen Saturation 99% 01/12/2024 11:08 AM CDT Inhaled Oxygen Concentration - - Weight 97.1 kg (214 lb) 12/23/2023 10:26 PM CDT Height 172.7 cm (5' 8) 12/23/2023 10:26 PM CDT Body Mass Index 32.54 12/23/2023 10:26 PM CDT Plan of Treatment Health Maintenance Due Date Last Done Comments Annual Physical 1986 Hepatitis C 2001 COVID-19 Vaccine ( season) 2023 05/20/2020, 04/18/2020 DTaP, Tdap and Td Vaccines (5 - Td or Tdap) 01/04/2032 01/03/2022, 10/06/2020, 04/22/2016, Additional history exists Meningococcal Vaccine Aged Out 05/21/2005 No lei wesley eligible based on patient's age to complete this topic Hepatitis B Vaccines Completed 06/05/2006, 06/27/2005, 05/27/2005 HPV Vaccines Aged Out No longer eligi ble based on patient's age to complete this topic Meningococcal B Vaccine Aged Out No l onger eligible based on patient's age to complete this topic Pneumococcal Vaccine: Pediatrics (0 to 5 Years) and At-Risk Patients (6 to 49 Years) Aged Out No longer eligible based on patient's age to complete this topic RSV Immunizations Under 20 Months Aged Out No longer eligible based on patient's age to complete this topic Goals Goal Patient Goal Type Associated Problems Recent Progress Patient-Stated? Author Family - family caregiver with be involved in care transitions and discharge planning Lifestyle No Dung Huynh RN Medical Devices Implanted Type Area Motor Brakeman Device Identifier Shelf Expiration Date Model / Serial / Lot Graft Infuse Bone Medium - [id number] Implanted:Qty: 1 on 12/22/2023 by Carrol Caceres MD at [facility] Graft N/A: Spine Lumbar [employer] [id number] 05/20/2025 [id number] / / [id number] 65 Mm Michel Implanted:Qty: 2 on 12/22/2023 by Carrol Caceres MD at [facility] Michel N/A: Spine Lumbar ORTHOFIX [id number] / / 6.5x40 Screw Implanted:Qty: 6 on 12/22/2023 by Carrol Caceres MD at [facility] Screw N/A: Spine Lumbar ORTHOFIX [id number] / / Set Screw Implanted:Qty: 6 on 12/22/2023 by Carrol Caceres MD at [facility] Screw N/A: Spine Lumbar ORTHOFIX 36 / / Magnetos Implanted:Qty: 1 on 12/22/2023 by Carrol Caceres MD at [facility] N/A: Spine Lumbar [id number] 08/21/2027 [id number] / / [id number] Description:MFR: DENEEN BIOSMissingames IENCES Nxg Head Implanted:Qty: 6 on 12/22/2023 by Carrol Caceres MD at [facility] N/A: Spine Lumbar ORTHOFIX 36 / / Insurance [facility] Advance Directives * Full Code (Latest Code Status on File) Date Activated Date Inactivated Comments 12/28/2023 3:18 PM * Full Code Date Activated Date Inactivated Comments 12/24/2023 1:41 AM 12/25/2023 7:58 PM * Full Code Date Activated Date Inactivated Comments 12/22/2023 1:04 PM 12/23/2023 4:15 PM Care Teams Concept Artist Relationship Specialty Start Date End Date Celso Pugh MD [address] [place] [address] PCP - General FAMILY PRACTICE 02/21/18
--- OUTSIDE RECORDS SUMMARY | 2024-09-27 10:36 | XMS_ITS | Continuity of Care Document ---
Author Name [facility] Organization [facility] Care Team Providers Care Trackwalker Name Role Phone [facility] Unavailable Unavailable Social History Combined list of available smoking, tobacco, and other social history from Department of Defense and Veterans Affairs facilities. Social History Type Response Date Comment Sourc e This section is an empty social history section. [facility]
--- OUTSIDE RECORDS SUMMARY | 2024-09-27 10:36 | XMS_ITS | Clinical Summary ---
Author Organization [facility] Address [address] [place] [address] Care Team Providers Care Public Relations Name Role Phone Aurea Guaman Primary Care Provider [phone] Celso Pugh MD Unavailable [phone] Allergies Active Allergy Reactions Criticality Noted Date Comments Sulfa (Sulfonamide Antibiotics) Swelling,Hives High Reaction: Swelling, Hives, Medications escitalopram (LEXAPRO) 10 mg tablet Take 10 mg by mouth daily Active esomeprazole DR (NexIUM) 20 mg capsule Take 20 mg by mouth daily before breakfast Active ibuprofen (ADVIL,MOTRIN) 100 mg tablet HOLD UNTIL FOLLOW UP 09/12/19 19 Active Additional Information Patient not taking.Reported on 09/07/2019 acetaminophen 500 mg capsuleIndications :Fever Take 2 capsules (1,000 mg total) by mouth every 6 (six) hours 30 tablet 09/12/19 19 Active Additional Information Patient not taking.Reported on 09/07/2019 cyclobenzaprine (FLEXERIL) 10 mg tablet Take 1 tablet (10 mg total) by mouth every 8 (eight) hours as needed for muscle spasms 90 tablet 09/12/19 19 Active Additional Information Patient not taking.Reported on 09/07/2019 ondansetron ODT (ZOFRAN-ODT) 4 mg disintegrating tabletIndications: Nausea and Vomiting Take 1 tablet (4 mg total) by mouth every 6 (six) hours as needed for nausea or vomiting 20 tablet 1 09/12/19 19 Active Additional Information Patient not taking.Reported on 09/07/2019 levETIRAcetam (KEPPRA) 500 mg tablet Take 1 tablet (500 mg total) by mouth 2 (two) times a day 60 tablet 11 09/12/19 19 Active Additional Information Patient not taking.Reported on 09/07/2019 docusate sodium (COLACE) 100 mg capsuleIndications :constipation,Stoo l Softener Take 1 capsule (100 mg total) by mouth 2 (two) times a day 60 capsule 09/12/19 19 Active Additional Information Patient not taking.Reported on 09/07/2019 oxyCODONE (ROXICODONE) 10 mg tabletIndications: Pain Take 1 tablet (10 mg total) by mouth every 4 (four) hours as needed for pain 40 tablet 10/13/19 19 Active Additional Information Patient not taking.Reported on 09/07/2019 amitriptyline (ELAVIL) 25 mg tablet Take 1 tablet (25 mg total) by mouth nightly 30 tablet 11 10/13/19 19 Active Additional Information Patient not taking.Reported on 09/07/2019 gabapentin (NEURONTIN) 300 mg capsule Take 1 capsule (300 mg total) by mouth nightly 30 capsule 5 11/01/19 19 Active Additional Information Patient not taking.Reported on 09/07/2019 predniSONE (DELTASONE) 20 mg tablet TK 1 T PO D FOR 5 DAYS COU 0 01/21/20 19 Active naproxen (NAPROSYN) 500 mg tablet TK 1 T PO BID PRF PAIN 0 02/20/20 19 Active meclizine (ANTIVERT) 25 mg tablet TK 1 T PO TID 0 02/20/20 19 Active hydrOXYzine (ATARAX) 25 mg tablet TK 1 T PO BID PRA 0 02/24/20 19 Active busPIRone (BUSPAR) 10 mg tablet TK 1 T PO BID 0 01/25/20 19 Active benzonatate (TESSALON) 200 mg capsule TK 1 C PO TID FOR 10 DAYS PRF COUGH 0 01/21/20 19 Active azithromycin (ZITHROMAX) 250 mg tablet 0 01/04/20 19 Active albuterol HFA (PROVENTIL HFA,VENTOLIN HFA,PROAIR HFA) 90 mcg/actuation inhaler INL 2 PFS PO Q 4 H PRF COUGH 0 01/21/20 19 Active clonazePAM (KlonoPIN) 1 mg tablet Take 1 mg by mouth 08/22/19 Active Active Problems Problem Noted Date Diagnosed Date Sensorineural hearing loss, bilateral 03/10/2019 Recurrent major depressive disorder, in remissio n 09/13/2018 Former smoker 09/13/2018 Post-traumatic headache 09/10/2018 Conductive hearing loss of r ight ear with unrestricted hearing of left ear 09/10/2018 Tinnitus of right ear 09/10/2018 Fall from ground level 09/07/2018 Concussion with brief LOC 09/07/2018 Assessment & Plan (11/08/2018 12:56 PM CDT): His vestibular exam is normal today. I think that his symptoms of lightheadedness are most likely related to his recent concussion. His hearing appears relatively unharmed from his fall. Return to clinic as needed Open fracture of temporal bone 09/07/2018 Right Mastoid fracture, open, initial encounter 09/07/2018 Contusion of brain with loss of consciousness of 30 minutes or less 09/07/2018 Migraine headache 04/24/2015 Resolved Problems Problem Noted Date Diagnosed Date Resolved Date Ear discharge blood, right 09/07/2018 1 05/11/2018 Surgical History Surgery Date Site/Laterality Comments NO PAST SURGERIES Medical History Medical History Date Comments Anxiety Family History Medical History Relation Name Comments Breast cancer Other Lung cancer Other Relation Name Status Comments Other Social History Tobacco Use Types Packs/Day Years Used Date Smoking Tobacco: Former Cigarettes 0 03/2002 - 03/2017 Smokeless Tobacco: Current Tobacco Cessation:Counseling Given: Yes Alcohol Use Standard Drinks/Week Comments Yes 1 (1 standard drink = 0.6 oz pur e alcohol) Personal Safety Answer Date Recorded Have you ever been in or are you currently in a harmful physical or emotional relationship or is someone making you feel afraid or unsafe? Denies 04/25/2023 Sex and Gender Information Value Date Recorded Sex Assigned at Not on file Legal Sex Male 11:08 AM MARKETING SPECIALIST Gender Identity Not on file Sexual Orientation Not on file Occupation Industry Job Start Date Job End Date [employer] Not on file Not on file Not on file Obstetrics History Last Filed Vital Signs Vital Sign Reading Time Taken Comments Blood Pressure 150/108 04/25/2023 10:38 AM MARKETING SPECIALIST Pulse 86 04/25/2023 10:38 AM MARKETING SPECIALIST Temperature 36.9 C (98.4 F) 04/25/2023 10:38 AM MARKETING SPECIALIST Respiratory Rate 16 04/25/2023 10:38 AM MARKETING SPECIALIST Oxygen Saturation 98% 04/25/2023 10:38 AM MARKETING SPECIALIST Inhaled Oxygen Concentration - - Weight 94.5 kg (208 lb 5.4 oz) 04/25/2023 10:38 AM MARKETING SPECIALIST Height 172.7 cm (5' 8) 04/25/2023 10:38 AM MARKETING SPECIALIST Body Mass Index 31.68 04/25/2023 10:38 AM MARKETING SPECIALIST Plan of Treatment Health Maintenance Due Date Last Done Comments Depression Screening 1983 Hepatitis C Screening 1983 Regular Well Visit/Exam 18-64 2001 Varicella Vaccines (1 of 2 - 13+ 2-dose series) 02/17/2014 Covid-19 Vaccine ( - season) 2023 05/20/2020, 04/18/2020 Influenza Vaccine (Season Ended) 2024 01/24/2022, 01/25/2021, 03/09/2020, Additional history exists DTaP/Tdap/Td Vaccine (4 - Td or Tdap) 01/04/2032 01/03/2022, 04/22/2016, 10/24/2011, Additional history exists Hepatitis B Screening Completed 06/05/2006 , 06/27/2005, 05/27/2005 HPV Vaccines Aged Out No longer eligi ble based on patient's age to complete this topic Pneumococcal vaccine <65 Aged Out No longer eligible based on patient's age to complete this topic Insurance [facility] Member Subscriber Plan / Payer (Ef fective 1899-Present) Name:Jose Yun Member ID:Not on file Relation to Subscriber:Self Name:Jose Yun Payer ID:[id number] (NAIC) Group ID:[id number] Type:[employer] Address: [address] Member Subscriber Plan / Payer (Ef fective 2018-Present) Name:Jose Yun Relation to Subscriber:Self Name:Jose Yun Payer ID:[id number] (NAIC) Group ID:[id number] Type:[employer] Address: [address] [facility] Member Subscriber Plan / Payer (Ef fective 2018-Present) Name:ScotttanmayJose Relation to Subscriber:Self Name:MarquisJose Payer ID:[id number] (NAIC) Group ID:[id number] Type:[employer] Address: [address] [employer] Advance Directives For more information, please contact: [phone] * Full Code (Latest Code Status on File) Date Activated Date Inactivated Comments 09/11/2018 7:17 AM 09/11/2018 8:04 PM Care Teams Public Relations Relationship Specialty Start Date End Date Aurea Guaman PA PCP - General Physician Bench Mechanic 08/21/19 Celso Pugh MD Family Medicine 08/21/19
--- OUTSIDE RECORDS SUMMARY | 2024-09-27 10:36 | XMS_ITS | Referral Summary ---
Author Organization [facility] Address [address] [place] [address] Care Team Providers Care Movable Bulkhead Installer Name Role Phone Aurea Guaman Primary Care Provider [phone] Celso Pugh MD Unavailable [phone] Allergies Active Allergy Reactions Criticality Noted Date [...] Ear discharge blood, right 09/07/2018 1 05/11/2018 Social History Tobacco Use Types Packs/Day Years [...] on file Legal Sex Male 11:08 AM BUGGY OPERATOR Gender Identity Not on file Sexual Orientation Not on file Occupation Industry Job Start Date Job End Date [employer] Not on file Not on file Not on file Last Filed Vital Signs Vital Sign Reading Time Taken Comments Blood Pressure 150/108 04/25/2023 10:38 AM BUGGY OPERATOR Pulse 86 04/25/2023 10:38 AM BUGGY OPERATOR Temperature 36.9 C (98.4 F) 04/25/2023 10:38 AM BUGGY OPERATOR Respiratory Rate 16 04/25/2023 10:38 AM BUGGY OPERATOR Oxygen Saturation 98% 04/25/2023 10:38 AM BUGGY OPERATOR Inhaled Oxygen Concentration - - Weight 94.5 kg (208 lb 5.4 oz) 04/25/2023 10:38 AM BUGGY OPERATOR Height 172.7 cm (5' 8) 04/25/2023 10:38 AM BUGGY OPERATOR Body Mass Index 31.68 04/25/2023 10:38 AM BUGGY OPERATOR Plan of Treatment Not on file Insurance [facility] Member Subscriber Plan / Payer (Ef fective 1899-Present) Name:Jose Yun Member ID:Not on file Relation to Subscriber:Self Name:Jose Yun Payer ID:[id number] (NAIC) Group ID:[id number] Type:[employer] Address: [address] [employer] Member Subscriber Plan / Payer (Ef fective 2018-Present) Name:Jose Yun Relation to Subscriber:Self Name:Jose Yun Payer ID:[id number] (NAIC) Group ID:[id number] Type:[employer] Address: [address] [facility] Advance Directives For more information, please contact: [phone] * Full Code (Latest Code Status on File) Date Activated Date Inactivated Comments 09/11/2018 7:17 AM 09/11/2018 8:04 PM Care Teams Movable Bulkhead Installer Relationship Specialty Start Date End Date Aurea Guaman PA PCP - General Physician Blood Bank Business Manager 08/21/19 Celso Pugh MD Family Medicine 08/21/19
--- NOTE | 2024-09-27 15:02 | WPDPFTINT ---
PFT Procedure Performed PFT Procedure Performed Plethysmography (Lung Vol) Diffusing Cap (DLCO) Flow Vol Loop Spirometry w/o Bronchodil PFT Interpretation This is a pulmonary function test with spirometry, plethysmography and diffusing capacity. The test was performed and results interpreted in accordance with the 2019 and 2005 ATS/ERS Task Force guidelines respectively using the Global Lung Function Initiative-2012 reference equations. Patient demonstrated good effort and cooperation. Reproducibility criteria were met. The quality of the spirometry maneuver was Grade A. Findings: Spirometry: There is decreased maximal expiratory airflow at all lung volumes. The contour the inspiratory flow tracing is normal. The FVC is 5.02 L, 103% predicted. The FEV1 is 2.92 L, 74% predicted. the FEV1: FVC ratio is 58%. Plethysmography: Total lung capacity is 7.26 L, 111% predicted. The functional residual capacity is 3.22 L, 99% predicted. The residual volume is 2.24 L, 128% predicted. Diffusing capacity: The diffusing capacity unadjusted for hemoglobin and carboxyhemoglobin is 32.2, 101% predicted. The diffusing capacity adjusted for alveolar volume is 5.37, 109% predicted. Impression: There is a mild obstructive abnormality. The lung volumes are normal. The diffusing capacity is normal. There are no prior studies for comparison
== END 2024-09-27 10:28 | disposition home or self-care (01) ==
PROVIDERS: PCP Family Medicine; Visit Provider Nurse Practitioner Family
DX: R94.2 Abnormal results of pulmonary function studies (principal); R06.02 Shortness of breath
CPT/HCPCS: 94375; 94726; 94729

== ENCOUNTER 2024-10-12 21:55 | Emergency (ER) | payer BC, SELFPAY ==
--- NOTE | ~2024-10-12 | XR_ITS ---
EXAMINATION: XR chest 1V portable DATE: 10/12/2024 23:07 INDICATION: Chest pain TECHNIQUE: frontal view of the chest was obtained. COMPARISON: Chest radiograph dated 11/17/2023 FINDINGS: The lungs remain clear with no focal airspace opacities, pulmonary edema, pleural effusion or pneumot horax. The cardiomediastinal silhouette is normal. Visualized bones and soft tissues are unremarkable . IMPRESSION: 1. No acute cardiopulmonary disease. Reviewed, dictated and finalized at location A.
--- NOTE | ~2024-10-12 | CT_ITS ---
EXAMINATION: CT brain wo con DATE: 10/12/2024 23:13 INDICATION: Headache. Near syncope. TECHNIQUE: Computed tomography (CT) of the head was performed without intravenous contrast. Sagittal and coronal reconstructions were performed. The mA was adjusted according to patient size. Iterative reconstruction technique was employed. The dose-length product was 681.00 mGy-cm. COMPARISON: head CT dated 10/06/2020 FINDINGS: No acute intracranial hemorrhage, acute infarction or abnormal extra axial fluid collection. Ventricl es are normal and symmetric. No mass/mass effect. The orbits, paranasal sinuses and mastoid air cells are normal. IMPRESSION: 1. No acute intracranial process. Reviewed, dictated and finalized at location A.
[2024-10-12 21:55] VITALS: BP 112/73; PULSE 97; RESP 13; O2SAT 100
--- NOTE | 2024-10-12 22:02 | ECG_ITS ---
Test Date: 2024-10-12 22:06:13 Measurements Intervals [place] Rate: 78 P: 38 VA: 140 QRS: 30 QRSD: 112 T: 18 QT: 385 QTc: 440 Interpretive Statements SINUS RHYTHM No previous ECG available for comparison Electronically Signed On 10-14-2024 18:25:16 CDT by Benedict Gaspar M.D.
[2024-10-12] MEDS: SODIUM CHLORIDE 0.9% IV 1,000 ML 999 ML IV CONT (22:04)
[2024-10-12 22:30] LABS: Hematocrit 40.9 % (42.0-52.0); Hemoglobin 14.2 g/dL (14.0-18.0); Immature Granulocyte Percent A 0.6 % (0-0.5); Lymphocytes Absolute Auto 1.43 K/mm3 (0.9-3.2); Mean Corpuscular HGB Conc 34.7 g/dl (32-36); Mean Corpuscular Hemoglobin 29.7 pg (26-34); Mean Corpuscular Volume 85.6 fl (80-100); Nucleated Red Blood Cells Absolute Auto 0.000 K/mm3 (0.0-0.012); Nucleated Red Blood Cells Perc 0.0 % (0.0-0.2); Platelet Count Result 257 k/mm3 (150-375); Red Blood Count 4.78 M/mm3 (4.6-6.20); White Blood Count 13.5 K/mm3 (4.5-10.0)
--- OUTSIDE RECORDS SUMMARY | 2024-10-12 22:43 | XMS_ITS | Patient Health Record ---
Author Organization [facility] Address [address] [facility] [address] [place] [address] Care Team Providers Care Tailer Off Name Role Phone RAJI SHULTZ, [facility] Primary Care Provider Unavail able Jessica Lombardi APRN Unavailable Unavailable Iman Glasgow Unavailable [phone] Ofelia Lyon Unavailable [phone] Allergies Allergen (clinical drug ingredient) Drug/Non Drug [...] Status Risk Notes Problem Generalized anxiety disorder (92495289) Generalized anxiety disorder (F41.1) Active confirmed Problem Chronic insomnia (968899365) Chronic insomnia (F51.04) Active confirmed Problem Panic disorder (707189463) Panic attacks (F41.0) Active confirmed Problem Moderate recurrent major depression (95267213) Moderate recurrent major depression (F33.1) Active confirmed Problem Problematic consumption of alcohol (F10.90) Active confirmed Vital Signs Heart Rate 80 /min 11/29/2023 Height-cm 172.72 cm 11/29/2023 Blood pressure diastolic 88 mm Hg 11/29/2023 Weight-kg 97.98 kg 11/29/2023 Height 68 in 11/29/2023 Blood pressure systolic 127 mm Hg 11/29/2023 Weight 216 lbs 11/29/2023 BMI 32.84 kg/m2 11/29/2023 Encounters Encounter Location Date Provider Diagnosis [facility] [address] [place] [address] [address] 11/29/2023 Iman Glasgow Moderate recurrent major depression F33.1 ; Generalized anxiety disorder F41.1 ; Panic attacks F41.0 ; Chronic insomnia F51.04 and Problematic consumption of alcohol F10.90 [facility] [employer] [address] [address] 02/07/2024 Ofelia Lyon Assessments Encounter Date Diagnosis [...] Start Date Coverage End Date [employer] [place] [address] [id number] Jose Conley Self - patient is the insured Medical (General) History Medical History History ICD Code GERD HTN Migraines Pneumonia Past Psychiatric History: Anxiety Disord er,Panic Disorder Surgical History Surgery Date(Month/Year) lower lumbar surgery eye surgery
--- OUTSIDE RECORDS SUMMARY | 2024-10-12 22:43 | XMS_ITS | Clinical Summary ---
Author Organization [facility] Address [address] [place] [address] Care Team Providers Care Shuttle Veneering Supervisor Name Role Phone Celso Pugh MD Primary Care Provider [phone] Allergies Active Allergy Reactions Criticality Noted Date [...] from your doctor or pharmacy? Never 12/22/2023 [facility] Utilities Answer Date Recorded In the past 12 months has [facility] [employer], gas, oil, or water company threatened to [...] and heating? Not hard at all 12/24/2023 [facility] [...] any time in the past 12 m [facility], were you homeless or living in a assisted (including now)? No 12/24/2023 Sex and Gender [...] Comments Annual Physical 1988 Hepatitis C 2001 HPV Vaccines (1 - 3-dose SCDM series) 2010 COVID-19 Vaccine ( season) 2023 05/20/2020, 04/18/2020 DTaP, Tdap and Td Vaccines (5 - Td or Tdap) 01/04/2032 01/03/2022, 10/06/2020, 04/22/2016, Additional history exists Meningococcal Vaccine Aged Out 05/21/2005 No lei wesley eligible based on patient's age to complete this topic Hepatitis B Vaccines Completed 06/05/2006, 06/27/2005, 05/27/2005 Meningococcal B Vaccine Aged Out No l [...] Huynh RN Medical Devices Implanted Type Area Optical Goods Drill Operator Device Identifier Shelf Expiration Date Model / Serial / Lot Graft Infuse Bone Medium - [id number] Implanted:Qty: 1 on 12/22/2023 by Carrol Caceres MD at [facility] Graft N/A: Spine Lumbar [employer] [id number] 05/20/2025 [id number] / / [id number] Mm Michel Implanted:Qty: 2 on 12/22/2023 by Carrol Caceres MD at [facility] Michel N/A: Spine Lumbar ORTHOFIX [id number] / / 6.5x40 Screw Implanted:Qty: 6 on 12/22/2023 by Carrol Caceres MD at [facility] Screw N/A: Spine Lumbar ORTHOFIX [id number] / / Set Screw Implanted:Qty: 6 on 12/22/2023 by Carrol Caceres MD at [facility] Screw N/A: Spine Lumbar ORTHOFIX 36 / / Magnetos Implanted:Qty: 1 on 12/22/2023 by Carrol Caceres MD at [facility] N/A: Spine Lumbar [id number] 08/21/2027 [id number] / / [id number] Description:MFR: [employer] Nxg Head Implanted:Qty: 6 on 12/22/2023 by Carrol Caceres MD at [facility] N/A: Spine Lumbar ORTHOFIX 36 / / Insurance [employer] Advance Directives * Full Code (Latest Code Status on File) Date Activated Date Inactivated Comments 12/28/2023 3:18 PM * Full Code Date Activated Date Inactivated Comments 12/24/2023 1:41 AM 12/25/2023 7:58 PM * Full Code Date Activated Date Inactivated Comments 12/22/2023 1:04 PM 12/23/2023 4:15 PM Care Teams Shuttle Veneering Supervisor Relationship Specialty Start Date End Date Celso Pugh MD [address] [place] [id number] PCP - General FAMILY PRACTICE 02/21/18
--- OUTSIDE RECORDS SUMMARY | 2024-10-12 22:43 | XMS_ITS | Continuity of Care Document ---
Author Name [facility] Organization [facility] Care Team Providers Care Senior Investment Analyst Name Role Phone [facility] Unavailable Unavailable Problems Combined list of problems from Department of Defense and Veterans Affairs facilities. It does not include entries that were removed or entered in error. Problem Status Onset Date Problem Type Date of Resolution Comments Source Other asthma Active 10/05/19 25 Diagnosis 8224R-126 MDG Laceration without foreign body of other part of head Inactive 01/27/20 18 Condition DoD Pain in left shoulder Inactive 01/25/20 18 Condition [facility] ASSESSMENT, POST-DEPLOYMENT, DOCUMENTED ON [id number] Inactive 01/18/20 18 Condition DoD Pseudofolliculitis barbae Inactive 01/08/20 18 Condition [facility] Encounter for removal of sutures Inactive 01/08/20 18 Condition DoD Syncope and collapse Inactive 01/07/20 18 Condition DoD Laceration without foreign body of right eyelid and periocular area Inactive 01/07/20 18 Condition DoD visit for: services physical Active 04/06/19 13 Condition visit for: services physical (INITIAL POST-DEPLOYME NT ASSESSMENT: DOCUMENTED ON [id number]) [facility] Other asthma Active Condition 8224R-126 MDG Attention-deficit hyperactivity disorder, other type Active Condition 8224 R-126 MDG Chronic insomnia Active Condition 8224R -126 MDG Post-traumatic stress disorder, chronic Active Condition 8224R-1 26 MDG Generalized anxiety disorder Active Condition 8224R-126 MDG Moderate recurrent major depression Active Condition 8224R-12 6 MDG Obsessive-compulsive disorder, unspecified Active Condition 822 4R-126 MDG Postlaminectomy syndrome, not elsewhere classified Active Condition DoD Other spondylosis with radiculopathy, lumbosacral region Active Condition DoD Fusion of spine, lumbar region Active Condition [facility] visit for: administrative purpose Inactive Condition DoD sleep disturbances Active Condition DoD PHASE OF LIFE OR LIFE CIRCUMSTANCE PROBLEM Active Condition DoD NO PSYCHIATRIC DIAGNOSIS OR CONDITION ON AXIS I Inactive Condition DoD Medications Combined list of outpatient medications from Department of Defense and Veterans Affairs facilities.Medications provided include 1) outpatient medications from the last 15 months, and 2) patient-reported medications. Medication Details Route Status Patient Instructions Prescription Expires Prescription Number Last Dispense Date Ordering Provider Order Date Order Qty Source ALPRAZolam 0.5 mg oral tablet ALPRAZol am 0.5 mg oral tablet Start Date: 03/12/21 Stop Date: 03/01/24 Status: Shakirai avanoemí Repeat number: 1 Discont inued 03/01/20242023 No Facilit y Access ALPRAZolam 1 mg oral tablet ALPRAZol am 1 mg oral tablet Start Date: 02/28/21 Stop Date: 03/01/24 Status: Disconti baltazar Repeat number: 1 Discont inued 03/01/20242023 No Facilit y Access cefuroxime 500 mg oral tablet 0 total refill(s ) Discont inued 03/01/20242023 No Facilit y Access diclofenac sodium 50 mg oral delayed release tablet diclofen ac sodium 50 mg oral delayed release tablet Start Date: 10/16/20 Stop Date: 03/01/24 Status: Disconti baltazar Repeat number: 1 Discont inued 03/01/20242023 No Facilit y Access escitalopra m 10 mg oral tablet escitalo pram 10 mg oral tablet Start Date: 03/26/21 Stop Date: 03/01/24 Status: Orlinonti baltazar Repeat number: 1 Discont inued 03/01/20242023 No Facilit y Access Flexeril 10 mg oral tablet 1 tab(s), Oral, Daily, # 30 tab(s), 0 total refill(s ), Acute, Other Reason (Rx) Oral (given by mouth) Ordered 09/18/20252024 30.0 8224R-1 26 MDG hydrOXYzine hydrochlori de 25 mg oral tablet 1 tab(s), Oral, Daily, # 30 tab(s), 0 total refill(s ), Acute, 03/01/24 9:46:10 AM TOP TRIMMER, Other Reason (Rx) Oral (given by mouth) Discont inued 03/01/20242023 30.0 8224R-1 26 MDG hydrOXYzine hydrochlori de 25 mg oral tablet 1 tab(s), Oral, Daily, # 30 tab(s), 0 total refill(s ), Acute, 02/28/25 12:00:00 AM TOP TRIMMER, Other Reason (Rx) Oral (given by mouth) Ordered 02/28/20252023 30.0 8224R-1 26 MDG lisinopril 10 mg oral tablet 1 tab(s), Oral, Daily, for blood pressure , # 90 tab(s), 3 total refill(s ), Maintena nce, Other Reason (Rx) Oral (given by mouth) Ordered 09/18/20252024 90.0 8224R-1 26 MDG NexIUM 24HR 20 mg oral delayed release capsule 1 cap(s), Oral, Daily, # 30 cap(s), 0 total refill(s ), Maintena nce, Other Reason (Rx) Oral (given by mouth) Ordered 09/18/20252024 30.0 8224R-1 26 MDG pregabalin 75 mg oral capsule pregabal in 75 mg oral capsule Start Date: 02/28/21 Stop Date: 03/01/24 Status: Disconti nued Repeat number: 1 Discont inued 03/01/20242023 No Facilit y Access tiZANidine 2 mg oral tablet tiZANidi ne 2 mg oral tablet Start Date: 11/18/20 Stop Date: 03/01/24 Status: Disconti nued Repeat number: 1 Discont inued 03/01/20242023 No Facilit y Access traMADol 50 mg oral tablet traMADol 50 mg oral tablet Start Date: 03/12/21 Stop Date: 03/01/24 Status: Disconti nued Repeat number: 1 Discont inued 03/01/20242023 No Facilit y Access vilazodone 20 mg oral tablet 1 tab(s), Oral, Daily, # 30 tab(s), 0 total refill(s ), Maintena nce, Other Reason (Rx) Oral (given by mouth) Discont inued 03/01/20242023 30.0 8224R-1 26 MDG vilazodone 20 mg oral tablet 1 tab(s), Oral, Daily, # 30 tab(s), 0 total refill(s ), Maintena nce, Other Reason (Rx) Oral (given by mouth) Ordered 2023 30.0 8224R-1 26 MDG Allergies, Adverse Reactions, Alerts Combined list of allergies from Department of Defense and Veterans Affairs facilities. It does not include entries that were removed or entered in error. Substance Category Reaction Severity Reaction type Status Date Reported Comments Source sulfa drugs Propensity to adverse reactions to substance Active Reaction( s): Unknown Unknown Organization [facility] Drug allergy (disorder) active 2 [employer] Immunizations Combined list of available immunizations from the Department of Defense and Veterans Affairs facilities. Immunization Series Date Given Administered By Site Reaction Lot Number CVX Code Drug Manager Athletics Status Comments Source Influenza, injectable, quadrivalent, preservative free 0 2021 [id number] Selexagen Therapeuticsine (SKB) complet ed Influenza , injectabl e, quadrival ent, preservat jacquie free DoD tetanus and diphtheria toxoids, adsorbed, preservative free, for adult use (2 Lf of tetanus toxoid and 2 Lf of diphtheria toxoid) 2 2021 [id number] Sanofi Pasteur (PMC) complet ed tetanus and diphtheri a toxoids, adsorbed, preservat jacquie free, for adult use (2 Lf of tetanus toxoid and 2 Lf of diphtheri a toxoid) DoD influenza, injectable, quadrivalent 2020 [id number] 158 Seqirus complet ed influenza , injectabl e, quadrival ent 01/25/21 Given Ambulat ory Pharmac y influenza, injectable, quadrivalent, contains preservative 1 2020 [id number] 158 Seqirus (SEQ) complet ed influenza , injectabl e, quadrival ent, contains preservat jacquie DoD COVID Vaccine Moderna 2020 Lynda rojas Arm [id number] complet ed COVID Vaccine Moderna 05/20/20 Given Ambulat ory Pharmac y SARS-COV-2 (COVID-19) vaccine, mRNA, spike protein, LNP, preservative free, 100 mcg or 50 mcg dose 2 2020 DARYL ANDRADE [id number] Moderna [email or web address]. (MOD) complet ed SARS-COV- 2 (COVID-19 ) vaccine, mRNA, spike protein, LNP, preservat jacquie free, 100 mcg or 50 mcg dose DoD COVID Vaccine Moderna 2020 Lynda rojas Arm [id number] complet ed COVID Vaccine Moderna 04/18/20 Given Ambulat ory Pharmac y SARS-COV-2 (COVID-19) vaccine, mRNA, spike protein, LNP, preservative free, 100 mcg or 50 mcg dose 1 2020 JERSON RAMOS N [id number] Modern [email or web address] (MOD) complet ed SARS-COV- 2 (COVID-19 ) vaccine, mRNA, spike protein, LNP, preservat jaqcuie free, 100 mcg or 50 mcg dose DoD influenza, injectable, quadrivalent- pf 2019 [id number] 082 150 Seqirus complet ed influenza , injectabl e, quadrival ent-pf 03/09/20 Given Ambulat ory Pharmac y typhoid Vi capsular polysaccharid e vac 2019 [id number] 101 sanofi pasteur complet ed typhoid Vi capsular polysacch aride vac 03/09/20 Given Ambulat ory Pharmac y typhoid Vi capsular polysaccharid e vaccine 1 2019 [id number] 101 Sanofi Pasteur (PMC) complet ed typhoid Vi capsular polysacch aride vaccine DoD Influenza, injectable, quadrivalent, preservative free 1 2019 [id number] 082 150 Seqirus (SEQ) complet ed Influenza , injectabl e, quadrival ent, preservat jacquie free DoD influenza, injectable, quadrivalent 2017 [id number] 158 Seqirus complet ed influenza , injectabl e, quadrival ent 01/13/18 Given Ambulat ory Pharmac y influenza, injectable, quadrivalent, contains preservative 14 2017 [id number] [id number] 158 Seqirus (SEQ) complet ed influenza , injectabl e, quadrival ent, contains preservat jacquie DoD anthrax vaccine 2017 [id number] 24 Emergent Biosolutions complet ed anthrax vaccine 10/23/17 Given Ambulat ory Pharmac y poliovirus vaccine, inactivated 2017 [id number] 10 sanofi pasteur complet ed polioviru s vaccine, inactivat ed 10/23/17 Given Ambulat ory Pharmac y poliovirus vaccine, inactivated 2 2017 [id number] 10 Sanofi Pasteur (PMC) complet ed polioviru s vaccine, inactivat ed DoD anthrax vaccine 5 2017 [id number] 24 [employer]gent [employer] [place] ([facility]) complet ed anthrax vaccine DoD Influenza, inj, MDCK, quadrivalent- pf 2016 [id number] Seqirus complet ed Influenza , inj, MDCK, quadrival ent-pf 12/27/16 Given Ambulat ory Pharmac y Influenza, injectable, Madin Gabriella Canine Kidney, preservative free, quadrivalent 13 2016 [id number] 171 Seqirus (SEQ) comple t ed Influenza , injectabl e, Madin Gabriella Canine Kidney, preservat jacquie free, quadrival ent DoD typhoid Vi capsular polysaccharid e vac 2016 [id number] 101 sanofi pasteur complet ed typhoid Vi capsular polysacch aride vac 03/28/16 Given Ambulat ory Pharmac y typhoid Vi capsular polysaccharid e vaccine 5 2016 [id number] 101 Sanofi Pasteur (PMC) complet ed typhoid Vi capsular polysacch aride vaccine DoD influenza, injectable, quadrivalent- pf 2015 [id number] 150 GlaxoSmithKli ne complet ed influenza , injectabl e, quadrival ent-pf 11/30/15 Given Ambulat ory Pharmac y Influenza, injectable, quadrivalent, preservative free 1 2015 [id number] 150 Smithine (SKB) complet ed Influenza , injectabl e, quadrival ent, preservat jacquie free DoD influenza, seasonal, injectable-pf 2014 [id number] 140 CSL Behring complet ed influenza , seasonal, injectabl e-pf 12/22/14 Given Ambulat ory Pharmac y Influenza, seasonal, injectable, preservative free 11 2014 [id number] 140 CSL Biotherapies, Inc. (CS) complet ed Influenza , seasonal, injectabl e, preservat jacquie free DoD anthrax vaccine 2014 [id number] 24 Emergent Biosolutions complet ed anthrax vaccine 03/30/14 Given Ambulat ory Pharmac y anthrax vaccine 4 2014 [id number] 24 [employer] [place] ([facility]) complet ed anthrax vaccine DoD typhoid Vi capsular polysaccharid e vac 2013 [id number] 101 sanofi pasteur complet ed typhoid Vi capsular polysacch aride vac 02/24/14 Given Ambulat ory Pharmac y typhoid Vi capsular polysaccharid e vaccine 4 2013 [id number] 101 Sanofi Pasteur ([facility]) complet ed typhoid Vi capsular polysacch aride vaccine DoD influenza, live, intranasal,qu adrivalent 2013 [id number] 149 Medimmune Inc comple t ed influenza , live, intranasa l,quadriv alent 01/20/14 Given Ambulat ory Pharmac y influenza, live, intranasal, quadrivalent 10 2013 [id number] 149 MedISeekPandaune, Inc. (MED) complet ed influenza , live, intranasa l, quadrival ent DoD measles/mumps /rubella virus vaccine 2013 [id number] 03 Merck & Company Inc complet ed measles/m umps/rube lla virus vaccine 05/20/13 Given Ambulat ory Pharmac y measles, mumps and rubella virus vaccine 2 2013 [id number] 03 Merck (MSD) complet ed measles, mumps and rubella virus vaccine DoD influenza, live, intranasal,qu adrivalent 2012 [id number] 149 Medimmune Inc comple t ed influenza , live, intranasa l,quadriv alent 01/21/13 Given Ambulat ory Pharmac y influenza, live, intranasal, quadrivalent 1 2012 [id number] 149 MedImmune, Inc. (MED) complet ed influenza , live, intranasa l, quadrival ent DoD influenza virus vaccine, live 2011 [id number] 111 Medimmune Inc comple t ed influenza virus vaccine, live 01/09/12 Given Ambulat ory Pharmac y influenza virus vaccine, live, attenuated, for intranasal use 1 2011 [id number] 111 MedImmune, Inc. (MED) complet ed influenza virus vaccine, live, attenuate d, for intranasa l use DoD anthrax vaccine 2011 [id number] 24 Emergent Biosolutions complet ed anthrax vaccine 11/29/11 Given Ambulat ory Pharmac y anthrax vaccine 3 2011 [id number] 24 [employer] [place] ([facility]) complet ed anthrax vaccine DoD tetanus, diphtheria, acellular pertu is 2011 [id number] 115 sanofi pasteur complet ed tetanus, diphtheri a, acellular pertussis 10/24/11 Given Ambulat ory Pharmac y typhoid Vi capsular polysaccharid e vac 2011 H0163 101 sanofi pasteur complet ed typhoid Vi capsular polysacch aride vac 10/24/11 Given Ambulat ory Pharmac y typhoid Vi capsular polysaccharid e vaccine 1 2011 H0163 101 Sanofi Pasteur (PMC) complet ed typhoid Vi capsular polysacch aride vaccine DoD tetanus toxoid, reduced diphtheria toxoid, and acellular pertu is vaccine, adsorbed 1 2011 [id number] 115 Sanofi Pasteur ([facility]) complet ed tetanus toxoid, reduced diphtheri a toxoid, and acellular pertussis vaccine, adsorbed DoD influenza virus vaccine, live 2010 [id number] 111 Dajie Inc comple t ed influenza virus vaccine, live 12/21/10 Given Ambulat ory Pharmac y influenza virus vaccine, live, attenuated, for intranasal use 7 2010 [id number] 111 Upstream, Inc. (MED) complet ed influenza virus vaccine, live, attenuate d, for intranasa l use DoD influenza virus vaccine, live 2009 [id number] 111 SafeOp Surgicalune Inc comple t ed influenza virus vaccine, live 01/25/10 Given Ambulat ory Pharmac y influenza virus vaccine, live, attenuated, for intranasal use 1 2009 [id number] 111 Upstream, Inc. (MED) complet ed influenza virus vaccine, live, attenuate d, for intranasa l use DoD anthrax vaccine 2009 [id number] 24 Emergent Biosolutions complet ed anthrax vaccine 10/01/09 Given Ambulat ory Pharmac y anthrax vaccine 2 2009 [id number] 24 [employer] [place] ([facility]) complet ed anthrax vaccine DoD anthrax vaccine 2009 [id number] 24 Emergent Biosolutions complet ed anthrax vaccine 08/25/09 Given Ambulat ory Pharmac y vaccinia (smallpox) vaccine 2009 VV04-00 3A 75 [employer] complet ed vaccinia (smallpox ) vaccine 08/25/09 Given Ambulat ory Pharmac y anthrax vaccine 1 2009 [id number] 24 [employer] [place] ([facility]) complet ed anthrax vaccine DoD vaccinia (smallpox) vaccine 1 2009 VV04-00 3A 75 [facility] ([facility]) complet ed vaccinia (smallpox ) vaccine DoD Novel influenza-H1N 1-09, injectable 2009 [id number] 1 127 Novartis Pharmaceutica complet ed Novel influenza -L0L3-45, injectabl e 04/28/09 Given Ambulat ory Pharmac y Novel influenza-H1N 1-09, injectable 1 2009 [id number] 1 127 Novartis Pharmaceutica l Leonardo. (NOV) complet ed Novel influenza -Y7N7-42, injectabl e DoD influenza virus vaccine, live 2008 [id number] 111 Medimmune Inc comple t ed influenza virus vaccine, live 01/26/09 Given Ambulat ory Pharmac y influenza virus vaccine, live, attenuated, for intranasal use 1 2008 [id number] 111 iLiveune, Inc. (MED) complet ed influenza virus vaccine, live, attenuate d, for intranasa l use DoD typhoid Vi capsular polysaccharid e vac 2008 [id number] 101 sanofi pasteur complet ed typhoid Vi capsular polysacch aride vac 04/29/08 Given Ambulat ory Pharmac y typhoid Vi capsular polysaccharid e vaccine 1 2008 [id number] 101 Sanofi Pasteur ([facility]) complet ed typhoid Vi capsular polysacch aride vaccine DoD influenza virus vaccine, live 2007 [id number] 111 MediSeekPandaune Inc comple t ed influenza virus vaccine, live 12/18/07 Given Ambulat ory Pharmac y influenza virus vaccine, live, attenuated, for intranasal use 1 2007 [id number] 111 MedImmune, Inc. (MED) complet ed influenza virus vaccine, live, attenuate d, for intranasa l use DoD influenza virus vaccine, live 2006 [id number] 111 Medimmune Inc comple t ed influenza virus vaccine, live 02/27/07 Given Ambulat ory Pharmac y influenza virus vaccine, live, attenuated, for intranasal use 1 2006 [id number] 111 MedImmune, Inc. (MED) complet ed influenza virus vaccine, live, attenuate d, for intranasa l use DoD hepatitis A-hepatitis B vaccine 2006 104 complet ed hepatitis A-hepatit is B vaccine 06/05/06 Given Ambulat ory Pharmac y typhoid vaccine, inactivated 2006 101 complet ed typhoid vaccine, inactivat ed 06/05/06 Given Ambulat ory Pharmac y typhoid vaccine, parenteral, other than acetone-kille d, dried 1 2006 41 Transcribed (TRS) complet ed typhoid vaccine, parentera l, other than acetone-k illed, dried DoD hepatitis A and hepatitis B vaccine 3 2006 104 Transcribed (TRS) complet ed hepatitis A and hepatitis B vaccine DoD influenza virus vaccine, live 2005 [id number] 111 Dajie Inc comple t ed influenza virus vaccine, live 12/12/05 Given Ambulat ory Pharmac y influenza virus vaccine, live, attenuated, for intranasal use 1 2005 [id number] 111 Upstream, Inc. (MED) complet ed influenza virus vaccine, live, attenuate d, for intranasa l use DoD hepatitis A-hepatitis B vaccine 2005 [id number] 5AA 104 GlaxoSmithKli ne complet ed hepatitis A-hepatit is B vaccine 06/27/05 Given Ambulat ory Pharmac y hepatitis A and hepatitis B vaccine 2 2005 [id number] 5AA 104 SmithKline (SKB) complet ed hepatitis A and hepatitis B vaccine DoD hepatitis A-hepatitis B vaccine 2005 [id number] 5AA 104 GlaxoSmithKli ne complet ed hepatitis A-hepatit is B vaccine 05/27/05 Given Ambulat ory Pharmac y measles/mumps /rubella virus vaccine 2005 [id number] 03 Merck & Company Inc complet ed measles/m umps/rube lla virus vaccine 05/27/05 Given Ambulat ory Pharmac y measles, mumps and rubella virus vaccine 1 2005 [id number] 03 Merck (MSD) complet ed measles, mumps and rubella virus vaccine DoD varicella virus vaccine 1 2005 21 () Not Given varicella virus vaccine DoD hepatitis A and hepatitis B vaccine 1 2005 [id number] 5AA 104 SmithKline (SKB) complet ed hepatitis A and hepatitis B vaccine DoD tuberculin purified protein derivative 2005 [id number] 96 sanofi pasteur complet ed tuberculi n purified protein derivativ e 05/24/05 Given Ambulat ory Pharmac y tetanus-dipht h toxoids (Td) adult/adol 2005 [id number] 09 sanofi pasteur complet ed tetanus-d iphth toxoids (Td) adult/ado l 05/21/05 Given Ambulat ory Pharmac y meningococcal A,C,Y,W-135 (MCV4P) 2005 [id number] 114 sanofi pasteur complet ed meningoco ccal A,C,Y,W-1 35 (MCV4P) 05/21/05 Given Ambulat ory Pharmac y poliovirus vaccine, inactivated 2005 [id number] 10 sanofi pasteur complet ed polioviru s vaccine, inactivat ed 05/21/05 Given Ambulat ory Pharmac y influenza virus vaccine,split 2005 [id number] 15 sanofi pasteur complet ed influenza virus vaccine,s plit 05/21/05 Given Ambulat ory Pharmac y tetanus and diphtheria toxoids, adsorbed, preservative free, for adult use (2 Lf of tetanus toxoid and 2 Lf of diphtheria toxoid) 1 2005 [id number] 09 Sanofi Pasteur ([facility]) complet ed tetanus and diphtheri a toxoids, adsorbed, preservat jacquie free, for adult use (2 Lf of tetanus toxoid and 2 Lf of diphtheri a toxoid) DoD poliovirus vaccine, inactivated 1 2005 [id number] 10 Sanofi Pasteur (PMC) complet ed polioviru s vaccine, inactivat ed DoD influenza virus vaccine, split virus (incl. purified surface antigen)-reti red CODE 1 2005 [id number] 15 Sanofi Pasteur (PMC) complet ed influenza virus vaccine, split virus (incl. purified surface antigen)- retired CODE DoD influenza virus vaccine, whole virus 0 2005 [id number] 16 Sanofi Pasteur (PMC) complet ed influenza virus vaccine, whole virus DoD meningococcal polysaccharid e (groups A, C, Y and W-135) diphtheria toxoid conjugate vaccine (MCV4P) 1 2005 [id number] 114 Sanofi Pasteur (PMC) complet ed meningoco ccal polysacch aride (groups A, C, Y and W-135) diphtheri a toxoid conjugate vaccine (MCV4P) DoD Results Combined list of recent chemistry, hematology and other laboratory results from Department of Defense and Veterans Affairs, ranging from 15 months to all on record, depending upon the facility. Order Name Results Value Reference Range Date Interpretation Specimen Comments Source Infectiou s Disease HIV-1/O/2 Non-Reac tive 1 (04/22/24 8:23 AM) 04/22 N Interpretiv e Data: INTERPRETAT ION: This method is a screening procedure for the detection of HIV p24 Antigen and Antibodies to HIV-1, including Group O, and/or HIV-2. NON-REACTIV E: HIV-1 antigen and HIV-1 / HIV-2 antibodies were not detected. No laboratory evidence of HIV infection. A negative test result does not exclude the possibility of exposure to or infection with HIV. HIV antibodies and/or p24 antigen may be undetectabl e in some stages of the infection and in some clinical conditions. If acute HIV infection is suspected, consider submitting another specimen to a reference laboratory for HIV-1 RNA. SCREEN REACTIVE - CONFIRMATIO N TO FOLLOW: Possible presence of HIV-1antibo dies, HIV-2 antibodies and/or HIV-1 p24 antigen. Specimen will reflex to the confirmatio n testing that fulfills the Center for Disease Control and Prevention' s HIV diagnostic algorithm. Refer to [facility] Lab Guide for additional information : [email or web address] x Testing performed by Mayra varela. [facility] Miscellan eous Sendouts Repository Sample Received (04/22/24 8:23 AM) 04/22 N [facility] Encounters Combined list of: 1) Encounters from Department of Veterans Affairs facilities going backup to the last 18 months, not all VA inpatient encounters are included; 2) Encounters from the Department of Defense facilities going backup to 280 months. Location Location Details Encounter Type Encounter Number Reason For Visit Attending Provider ADM Date DC Date Status Disposition Source [address] [place] [address] Bogdan OREILLY ([facility] [place]Fam nate Med Tm B Non-AD BCC) TELE CONSULT [id number] Right ear issues cad JADEN Vincent 07/01 375[facility])(F amily Med Tm B Non-AD BCC) Theater Facility OUTPATIENT [id number] Theater Provider 04/06 Released w/o Limitations Theater Facilit y Theater Facility OUTPATIENT [id number] Theater Provider 06/06 Released w/o Limitations Theater Facilit y [place]([facility]) OUTPATIENT [id number] Notes Entered by: FANI ELLIOTT 22 May 2016 1201 ------- ------- ------- ------- -- Neck irritat ion from shaving . FANI ELLIOTT 05/22 Released w/o Limitations [place]([facility]) [address] [place] [address])([facility]) OUTPATIENT [id number] YARELY CANNON 12/02 Released w/o Limitations [address] [place] [address])(O ldclini c) [address] [place] [address])(Opt ometry) OUTPATIENT [id number] Notes Entered by: APURVA VERDUGO 24 Aug 2017 1100 ------- ------- ------- ------- -- glasses order LORETTA VERDUGO 08/24 Released w/o Limitations [address] [place] [address])(O ptometr y) [address] [place] [address])([facility]) TELE CONSULT [id number] Notes Entered by: PARI ANDRADE 21 Oct 2017 0944 ------- ------- ------- ------- -- Deploym ent Recall DARYL ANDRADE 10/21 Other Not Elsewhere Classified [address] [place] [address])(O ldclini c) [address] [place] [address])([facility]) OUTPATIENT [id number] Medicat ion review for deploym ent CHATA BELTRE 10/22 Released w/o Limitations [address] [place] [address])(O ldclini c) [address] [place] [address])([facility]) OUTPATIENT [id number] Notes Entered by: LEW MARX 23 Oct 2017 1027 ------- ------- ------- ------- -- LEW CASTILLO 10/23 Released w/o Limitations [facility])(O ldclini c) [facility]Old clinic) OUTPATIENT [id number] BEAR STAFFORD 10/23 Released w/o Limitations [facility])(O ldclini c) Theater Facility OUTPATIENT [id number] Theater Provider 01/01 Released w/o Limitations [facility] Fac[facility] Facility OUTPATIENT [id number] Theater Provider 01/07 Released w/o Limitations [facility] OUTPATIENT [id number] 1 Theater Provider 01/17 Released w/o Limitations Theater Fac[facility] Theater Facility OUTPATIENT [id number] 1 Theater Provider 01/24 Released w/o Limitations Theater Facilit y Theater Facility OUTPATIENT [id number] Theater Provider 01/26 Released w/o Limitations Theater Facilit y [address] [place] [address])([facility]) OUTPATIENT [id number] 2 non enrolle e/lod/l eft shoulde r/head injury/ MERT ARGUETA 03/03 Released w/o Limitations [facility])(S cott [facility])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 the first report of an illness or injury private branch exchange service advisor is over the 180 days report time frame. Will review with member and provide with guidance. 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 Will request 214s and VA letter. PHAQ ready for PCM review and signature. Addendum by DARYL ANDRADE on September 18, 2024 10:22 CDT pricing/signage team member is due for appointment with PCP and will discuss the following with PCP: Reports under treatment for the following health conditions: 1. High blood pressure 2. Other lung problems 3. high or bad cholesterol 4. Wheezing, shortness of breath, or difficulty breathing 5. Recurring headaches/migraines 6. Stomach problems Reports did not seek medical care for the following reported concerns: 1. Change in vision 2. persistent or recurring noises in head or ears 3. Change in hearing 4. New skin condition. He is working with the [facility] for the [facility]. pricing/signage team member reports ecezma that started this 2024, has been evaluated. Is planning to be evaluated. pricing/signage team member had an eye exam a couple of years ago and hasn't noticed any changes, just needs an updated eye exam. will review NARSUM with private branch exchange service advisor and documents to provide in packet. Extracted from:Title: Office Clinic Note Author: CHATA BELTRE Date: 04/22/24 Chronic lumber back pain s/p revision: SM recovering well from recent surgery, but still having substantial pain. He is currently unable to complete his fitness test and has providing a letter from his neurosurgeon stating that this may be the case through Apr 13, 2025. He is able to run 100 yards and lift 40 yards in an emergency situation. Will update restrictions in ASIMS. Of note, he will be at 20 years of service as of 03/30/25 and hopes to stay in [facility] as long as possible with his condition. . SM has been referred to [facility] for review. Extracted from:Title: Review of restrictions Author: DARYL ANDRADE Date: 03/01/24 pricing/signage team member is present today to review his medical history for his back. pricing/signage team member has been [facility] to [facility] for his back 5 times and has been disposition as no IRILO required. He had a fall August 2018 that resulted in lost consciousness and multiple skull base fracture and C1 spinous process fracture: with a ruptured tympanic membrane. All notes are in JLV he recovered and was release to full duty. 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 All his treatment, procedure and follow up notes have been loaded to his record. Please review private branch exchange service advisor for retention and possible AMRO review. Update profile if applicable. 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 There was lucency at S1. Dr Nicki fuller perated 12/22/2023. Doing better, slow recovery. Still not 100% but improved. He will need the same restrictions at this point. His 20 yr bjorn is in 13 months. He has not done the AFPFT in 5 yrs. A/P significant back surgery again. At this point, he may likely never run again and he knows this. 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 Patient s PHAQ responses suggest Priority items requiring immediate action. S ervice member reports over the past month, sleep and back pain have cause significant concern or make it difficult to do work or take care of things at home, or get along with other people. Retention Waiver: N o Profile: Y es Medications: Medication List Active Medications Lisinopril 20 mg Duloxetine 20 mg Hydroxyzine HCI 35 mg PRN Cyclobenzaprine 10 mg multivitamin with minerals-folic acid 120 mcg Magnesium 250 mg Vitamin D3 Esomaprazole Magnesium 20 albuterol sulfate 60mcg Allergies: sulfa drugs I ohexol Does private branch exchange service advisor need Annual Mental Health review? 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 He reports continued back pain, had fusion done in the past and is looking into an additional surgery. All notes in record. His PCM notes are in record for his continued management of his blood pressure and anxiety. currently seeing [facility] for alcohol consumption. Reports under treatment for other lung problems, but not in current treatment, this was in the past and he keeps an inhaler on hand. Is not under current treatment with a pulmonary provider or lung provider. The reported head injury/TBI this is not current this is past injury that has been reported, all notes are in record. Reports periods of dizziness, fainting or loss of consciousness, but his has been getting better now that his blood pressure is being treated and management. Reports recurring headaches/migraines, states he was told by his treating provider this should get better now that his blood pressure is being managed. Reports stomach problems but is doing well on his medications. Reports overall health is fair but this is due to his ongoing back pain. He first appointment with the pain management clinic is October 10. Seen Maj Beltre today to review his back pain and alcohol consumption. If, Yes please update below. PHAQ ready for PCM review and signature. Addendum by CHATA BELTRE on October 06, 2023 15:00 CDT ANNUAL PERIODIC HEALTH ASSESSMENT I. CYTOLOGY MANAGER INFORMATION AND DEMOGRAPHICS (SMI) 1. Last Name: HEIKE 2. First Name: NATIVIDAD 3. Middle Name: LIZZY 4. Assessment Date: 5. : 6. Age: 38 7. Gender: M 8. [employer] ID Number: [id number] 9. Service Branch: [employer] 10. 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 Unit Name: [address] 14. Duty Station/Location: [place] 15. C: [id number] 16. Is this your first Periodic Health Assessment (PHA)?: N 17. Are you enrolled in a secure messaging system with your health care provider?: 18. Current contact information: Preferred Method: DSN Phone DSN: [id number] Day Time Night Time Email 1: [email or web address] Email 2: Address: [address] [place] [address]: [place] State: [place] Zip Code: [id number] 19. Point of contact who can always reach you: Name: Brandon Yun Phone 1: [phone] Phone 2: EMAIL: [email or web address] Address: [address] [place] [address]: [place] State: [place] Zip Code: [address] II. DEPLOYMENT INFORMATION (DEP) 1. [ 1 ] Total number of deployments in the PAST 5 YEARS 2. [ [place] ] Primary country of last deployment 3. [ ] Date departed theater 4. [ N ] Are you going to deploy within the NEXT 120 DAYS? III. 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 [ No ] Does your specialty require an operational duty physical exam? 4. [ Yes ] Are you currently enrolled in a medical surveillance/occupational health program?: Yes IV. MEDICAL CONDITIONS (VANCE): 1. Since your last PHA, have you experienced any of the following health conditions, and if so, what is your status? [ Persistent or recurring noises in head or ears, High or bad cholesterol ] Conditions with no medical care [ ] Conditions with medical care, but no longer under treatment [ High blood pressure, Other lung problems, Head injury/Concussion/Traumatic Brain Injury, Periods of dizziness, fainting, or loss of consciousness ] Conditions with medical care, and NOW under treatment 2. Since your last PHA, have you experienced any of the following health conditions, and if so, what is your status? [ Recurring headaches/migraines ] Conditions with no medical care [ ] Conditions with medical care, but no longer under treatment [ Recurring muscle, joint, or low back pain, Stomach problems ] Conditions with medical care, and NOW under treatment 3. For any condition marked YES in question 1 or 2, are you currently on any profile or limited duty for that condition? [ Recurring muscle, joint, or low back pain ] Conditions 4. [ Yes ] Have you been based or stationed at a location where an open burn pit was used? 5. [ Not Sure ] Have you been exposed to toxic airborne chemicals or other airborne contaminants? 6. [ Yes ] Are you enrolled in the Airborne Hazards and Open Burn Pit Registry? 8. Have you had any surgery since your last PHA?: No 10.a. [ Yes ] Since your last PHA, has a health care provider recommended surgery(s) that you have not had? 10.b. [ Back ] For what condition(s) was surgery recommended? 11.a. [ Yes ] Do you currently require hearing aids, special medical supplies, CPAP, adaptive equipment, assistive technology devices, and/or other special accommodations? 11.b.[ Not Sure ] What is your requirment(s) 12.a. [ Yes ] Do you have a waiver or profile for any part of your Service's physical fitness test? 12.b. [ Cardio EventCrunches/Sit-Ups, Push-Ups ] Which component(s) of your physical fitness test are waived/profiled? 13.a. [ Yes ] Do you have any problems wearing a gas mask, ballistic helmet, body armor, and/or chemical/biological protective garments? 13.b. [ lower back pain ] Please comment on these problems 14.a. [ No ] Have you ever been told by a health care provider that you SHOULD NOT receive an immunization for medical reasons? 15.a. [ No ] Do you have a permanent profile or an Assignment Limitation Code C? 16.a. [ Yes ] Are you on a temporary profile or limited duty? 16.b. [ Back ] Why? 17. [ 3 ] During the PAST 2 years, how many times have you been placed on a temporary profile or on limited duty? V. INDIVIDUAL MEDICAL READINESS (IMR) 1. [ Yes ] Do you have any allergies? 2. [ Bee Stings, Vaccin ] Allergy List 3. [ Yes and Current ] Do you have red medical warning dog tags? 4. [ Yes ] Do you wear corrective lenses? 5. [ 1 ] How many pairs of glasses do you have? 6. [ Yes ] Do you have gas mask inserts? . BEHAVIORAL HEALTH (MHA) 1. a. [ sleep, other: sleep, other: Back Pain sleep, other: Back Pain ] Over the PAST MONTH, what major life stressors have you experienced that are a cause of significant concern or make it difficult for you to do your work, take care of things at home, or get along with other people (for example, serious conflicts with others, relationship problems, or a legal, disciplinary or financial problem)? 1. b. [ Yes ] Are you currently in treatment or getting professional help for this concern? 2. a. [ Yes anxiety ] In the PAST YEAR did you receive care for any mental health condition or concern such as, but not limited to post traumatic stress disorder (PTSD), depression, anxiety disorder, alcohol abuse or substance abuse? 3. [ Yes Lisinopril, Duloxetine, Cyclobenzaprine, multi vitamin, Nexium, Advil PM ] What prescription or over-the counter medications (including herbals/supplements) for sleep, pain, combat stress, or a mental health problem are you CURRENTLY taking? 4. a. [ No ] In the past 12 months, have you gambled? 5. a. [ 2-3 times per week ] How often do you have a drink containing alcohol? 5. b. [ 1 or 2 ] How many drinks containing alcohol do you have on a typical day when you are drinking? 5. c. [ Less than monthly ] How often do you have six or more drinks on one occasion? 6. Have you ever had any experience that was so frightening, horrible, or upsetting that in the PAST MONTH, you: 6. a. [ No ] Have had nightmares about it or thought about it when you did not want to? 6. b. [ No ] Tried hard not to think about it or went out of your way to avoid situations that remind you of it? 6. c. [ No ] Were constantly on guard, watchful or easily startled? 6. d. [ No ] [place] numb or detached from others, activities, or your surroundings? 6. e. [ Not answered ] [place] guilt or unable to stop blaming yourself or others for the event(s) or any problems the event(s) may have caused? 7. Over the LAST 2 WEEKS, how often have you been bothered by the following problems? 7. a. [ Few or several days ] Little interest or pleasure in doing things 7. b. [ Few or several days ] Feeling down, depressed, or hopeless 8. [ No ] Would you like to schedule an appointment with a health care provider to discuss any health concern(s)? 9. [ No ] Are you interested in receiving information or assistance for a stress, emotional or alcohol concern? 10. [ No ] Are you interested in receiving assistance for a family or relationship concern? 11. [ No ] Would you like to schedule a visit with a keypuncher, mental health care provider, or a community support counselor? VII. FAMILY HISTORY AND LIFESTYLE (LIF) 1. [ Fair ] Overall, how would you rate your health during the PAST MONTH? 2. [ Cancer, Heart-related conditions, Diabet ] Member indicates that family members have the following problems 3. The following family members has/had a history of cancer: Breast: Grandmother Prostate: Father Lung: Grandfather 4. The following family members has/had a history of heart-related conditions: High Blood Pressure: Father Heart Attack: Grandfather, Brother Cardiac Arrhythmia: Brother 5. The following family members has/had a history of diabetes: Type I: Grandmother 6. [ No ] I participate in moderate intensity physical activites at least 2.5 hours, or a combination of moderate and vigorous aerobic activites, for at least 75 minutes per week. 7. In a typical week, I do physical activities specifically designed to STRENGTHEN my muscles: [ 6 ] Day(s) per week 8. [ Advil, Tylenol Cyclobenzaprine ] What prescriptions or [id number] medications are you CURRENTLY taking for health problems on a ROUTINE BASIS? 9. Which of the following products have you taken since your last PHA: Protein Supplements/Creatine: Once a day Multi-Vitamins: Once a day Individual Vitamins or Minerals: Once a day 11. Think about the PAST 30 DAYS. How often did you eat/drink the following foods/beverages? [ 3 to 6 servings per week ] Fruits [ 3 to 6 servings per week ] Vegetables [ 1 serving per day ] Starchy Vegetables [ 3 to 6 servings per week ] Whole Grains [ 1 serving per day ] Dairy and Calcium Containing Foods [ 1 or 2 servings per week ] Fish [ 1 or 2 servings per week ] Lean Protein [ Rarely or Never ] Sugar-Sweetened Beverages 12. [ Yes ] Have you had a cholesterol check by a health wound care coordinator within the PAST 5 YEARS? 13.a. In the PAST 30 DAYS, which of the following products have you used on at least one day? Chewing Tobacco, Snuff, or Dip 13.b. How long have you been using tobacco products?: 1 to 5 years 14. [ Yes, but I do not want a referral ] Are you interested in quitting tobacco? 16. [ Yes ] Are you regularly exposed to secondhand smoke? 17. [ 5 to less than 7 hours ] During the LAST 2 WEEKS, how many hours of sleep did you get on most days? 18. [ No ] During the LAST 2 WEEKS, have you felt impaired or unable to adequately perform due to sleepiness or poor quality sleep? 19. [ No ] Have you had any unexplained weight loss or gain since your last PHA? 20. Member is not at risk for sexually transmitted infections. 22. Since your last PHA, what, if anything, have you and your partner used to keep from getting ? [ Patch/Vaginal ring, Withdrawal ] I am actively taking steps to prevent , including 23. [ No ] In the last year, have you or your partner had a scare, where you were not trying to get but were worried enough to use a home test? IX. RESERVE COMPONENT (RES) 1. [ No ] Do you have an injury, illness, Or disease which was incurred or aggravated while in a duty status since your last PHA? 4. [ Yes - Other health insurance ] Are you currently coverered under a health insurance policy? 5.a. [Yes - Physical Fitness ] Do you have any current physical or mental health limitations related to a Worker's Compensation claim? 6. [ Yes, my application is pending ] Have you applied for or have you received a VA disability rating? 9. [ Back, anxiety ] What type of injury(s) or medical condition(s) is the basis of your VA disability claim(s)? 10. [ anxiety ] List any physical or mental health limitations you have related to your VA disability injury(s)/condition(s) X. OTHER MEDICAL (OTH) 1. [ 6 ] Rate the amount of pain you have had, on average, over the PAST 24 HOURS 2. [ Yes ] Are you receiving treatment for pain? 3. [ Yes ] Since your last PHA, have you received care or treatment for any medical and/or mental health condition(s) from a civilian or non- facility? 4. List the condition(s) treated and where the care was provided: Conditions: Anxiety Where: Yes 5. Member acknowledged responsibility for reporting health issues. 6. [ Back ] Member's concerns about health condition(s) or health risk exposures not already addressed 7. [ No ] Woud you like to schedule an appointment with a health care provider to discuss any health concerns? XI. SEPARATION AND ASSISTED 1. [ Yes ] Are you planning to separate or retire within the next year from Active Duty or Bath Duty (activated for greater than 30 continuous days) OR do you intend to file a claim for disability compensation with the Veterans Benefits Administration? PART B. RECORD REVIEW AND RECOMMENDATIONS I. RECORD REVIEWER INFORMATION 1. Last Name: LUPE 2. First Name: DARYL 3. Middle Name: 4. Service Branch: [employer] 5. 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 EMAIL: [email or web address] 8. Facility: [address] 9. Unit: [address] 10. Address: [facility] [employer] 11. State: [place] 12. Zip Code: [address] 13. Phone: [phone] 14. Date Record Review: II. MEDICAL SCREENING 1. [ ] Date of pricing/signage team member's most recent PHA 2. [ 5 feet 8 inches Date: ] pricing/signage team member's most recently documented height 3. [ 200 pounds Date: ] pricing/signage team member's most recently documented weight 4. [ 138/88 Date: ] pricing/signage team member's most recently documented blood pressure reading 5. [ Yes ] Does the pricing/signage team member have a history of abnormal blood pressure since their last PHA? 6. [ Yes ] Does the pricing/signage team member have a laboratory test of sickle cell trait documented in their permanent medical record? 7. [ No Cholesterol Test Documented ] What is the date of the pricing/signage team member's most recently documented cholesterol test? 9. [ Lisinopril 20 mg Duloxetine 20 mg Hydroxyzine HCI 35 mg PRN Cyclobenzaprine 10 mg multivitamin with minerals-folic acid 120 mcg Magnesium 250 mg Vitamin D3 Esomaprazole Magnesium 20 albuterol ] List of pricing/signage team member's active medications listed in their permanent medical record 10. [ No ] Is there a discrepancy between the active medication record review and the pricing/signage team member's self-reported list of medications? 11. [ PCM notes and back notes from neurosurgery ] List documented significant care the pricing/signage team member has received since their last PHA from a provider OUTSIDE the Health System 12. [ No ] Is there a discrepancy between the pricing/signage team member's list of OUTSIDE care (from [facility]), and the OUTSIDE care found in the record? 13. [ No Inside Care Documented ] List documented significant care the pricing/signage team member has received since their last PHA from a provider INSIDE the Health System 15. [ Not Answered ] Confirm that vaccine exemptions are listed in the medical record for each vaccine listed 16. [ No Discrepancies Noted ] Review available medical documentation of allergies and compare with pricing/signage team member responses. Document any discrepancies III. OCCUPATION-SPECIFIC EXAMINATIONS 2. [ ] When was the pricing/signage team member's most recently documented evaluation? IV. FAMILY HISTORY AND LIFESTYLE 1. [ Yes ] Does the [id number] reflect the pricing/signage team member's reported family history? VII. INDIVIDUAL MEDICAL READINESS 1. [ No ] Does the pricing/signage team member have an Assignment Limitation Code C? 2. [ 12 Expires: ] Number of months in the past year the pricing/signage team member has been in temporary duty status 3. [ Classification: 1 ] Most recently documented dental exam 4. [ Yes ] Is the pricing/signage team member current on all required immunizations in the immunization tracking system? 5. [ Yes ] Is the pricing/signage team member current with Service-specific requirements for glasses and gas mask inserts? 6. Does the pricing/signage team member have the following laboratory tests documented in their permanent medical record? [ Yes ] HIV test within the PAST 24 months [ Yes ] G6PD results on file [ Yes ] Blood type and Rh on file [ Yes ] DNA test on file IX. ADDITIONAL RECORD REVIEWER COMMENTS 1. This record review does NOT have a need for provider notification or referral.2. Additional comments about this record review that need to be forwarded to the Health Volunteer Services Specialist completing PART C: pricing/signage team member present today for PHA review. He reports continued back pain, had fusion done in the past and is looking into an additional surgery. All notes in record. His PCM notes are in record for his continued management of his blood pressure and anxiety. currently seeing Latesha for alcohol consumption. Updated profile today. See Saul mcnair for continued record reviewer notes. Date Record Review Completed: PART C. HEALTH CARE PROVIDER I. MENTAL HEALTH ASSESSMENT (MHA) PROVIDER INFORMATION 1. Last Name: NOE 2. First Name: CHATA 3. Middle Name: 4. Service Branch: [employer] 5. 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 Title: Physician Safety Technician (TRINITY) 7. EMAIL: [email or web address] 8. Facility: [address] 9. Unit: [address] 10. Address: [address] [place] [address] [facility] 11. State: [place] 12. Zip Code: [address] 13. Phone: [phone] 14. Date HCP Review initiated: 1. Member marked that they have a concern or a difficulty with a major life stressor: sleep, other: sleep, other: Back Pain Additional info: Referral is not indicated because the member is already under care. 2. Address concerns identified on member questions 2 and 3. History of mental health care: Member indicated concern or yes Member's response: anxiety anxiety Provider's comments: Already under care Medications: Member indicated concern or yes Member's response: Lisinopril, Duloxetine, Cyclobenzaprine, multi vitamin, Nexium, Advil PM Lisinopril, Duloxetine, Cyclobenzaprine, multi vitamin, Nexium, Advil PM Provider's comments: Already under care 3. Member's AUDIT-C screening score was 4. (nothing required) 4. Member did not bjorn yes on two or more of questions 6a through 6e. 5. Member did not bjorn More than half the days or nearly every day on question 7a or 7b. 6. Suicide risk evaluation. 6. a. Ask: Over the past month, have you wished you were or wished you could go to sleep and not wake up?: No 6. b. Ask: Have you actually had any thoughts of killing yourself?: No 6. f. 1. Ask: In you lifetime, have you done anything, started to do anything, or prepared to do anything to end your life?: No 6. g. Further risk assessment comments: 7. Member states that they have not had thoughts or concerns over the past month that they might hurt or lose control with someone. 9. Summary of Provider's identified concerns needing referrals: None 11. Comments: 13. Supplemental services recommended/information provided: No supplemental services required Date MHA Certified: III. PERIODIC HEALTH ASSESSMENT (PHA) PROVIDER INFORMATION 1. Last Name: NOE 2. First Name: CHATA 3. Middle Name: 4. Service Branch: [place] 5. Status: [facility] 6. Title: Physician Safety Technician ([place]) 7. EMAIL: [email or web address] 8. Facility: [address] [facility] 9. Unit: [facility] 10. Address: [address] [place] [address] 11. State: [place] 12. Zip Code: [address] 13. Phone: [phone] 14. Date HCP Review initiated: IV. PERIODIC HEALTH ASSESSMENT PROVIDER RECOMMENDATIONS and REFERRALS 1. Provider concerns with this assessment: Issue or concerns identified after review of pricing/signage team member responses, medical documentation, and Mental Health Assessment. 2. Summary of Provider's identified concerns: - Physical Health - Alcohol Use - Depression Symptoms Recommended referal(s): Referral Time Comments: V. SUMMARY AND COMMENTS 1. Additional information summarizing findings during the pricing/signage team member assessment: 2. Provider Comments: Concerns are already under care. . INDIVIDUAL MEDICAL READINESS DISPOSITION DETERMINATION VANCE: Not Ready DEN: Ready IMM: Ready LAB: Ready ME: Ready IMR Status: Partially Medically Ready VII. SERVICE MEDICAL DEPLOYABILITY EVALUATION INDICATED Based on your review of all documentation, is the pricing/signage team member medically deployable without limitations? Reference Lynn 6490.07 No (pricing/signage team member currently has a concern/medical condition that DOES NOT require duty limitation(s), but COULD limit deployability) Date PHA Completed: END OF [id number] REPORT Extracted from:Title: follow up back Author: DARYL ANDRADE Date: 10/06/23 pricing/signage team member present today to give update on his back and current treatment. Extracted from:Title: LOD Author: DARYL ANDRADE Date: 05/17/23 pricing/signage team member requested to talk with provider about LOD. 10/13/2024 [id number] MD Functional Status Combined list of recent functional and cognitive assessments recorded at Department of Defense and Veterans Affairs (VA).VA Functional [place] Measurement (FIM) Scale: 1 = Total Assistance (Subject = 0% +), 2 = Maximal Assistance (Subject = 25% +), 3 = Moderate Assistance (Subject = 50% +), 4 = Minimal Assistance (Subject = 75% +), 5 = Supervision, 6 = Modified [place] (Device), 7 = Complete [place] (Timely, Safely). Assessment Date/Time Source Assessment Type Assessment Skill Assessment Score Assessment Details No data available for this section
--- OUTSIDE RECORDS SUMMARY | 2024-10-12 22:43 | XMS_ITS | Referral Summary ---
Author Organization [facility] Address [address] [place] [address] Care Team Providers Care Quartz Orientator Name Role Phone Aurea Guaman Primary Care Provider [phone] Celso Pugh MD Unavailable [phone] Allergies Active Allergy Reactions Criticality Noted Date [...] on file Legal Sex Male 11:08 AM PERSONAL BANKING REPRESENTATIVE Gender Identity Not on file Sexual Orientation Not on file Occupation Industry Job Start Date Job End Date [employer] Not on file Not on file Not on file Last Filed Vital Signs Vital Sign Reading Time Taken Comments Blood Pressure 150/108 04/25/2023 10:38 AM PERSONAL BANKING REPRESENTATIVE Pulse 86 04/25/2023 10:38 AM PERSONAL BANKING REPRESENTATIVE Temperature 36.9 C (98.4 F) 04/25/2023 10:38 AM PERSONAL BANKING REPRESENTATIVE Respiratory Rate 16 04/25/2023 10:38 AM PERSONAL BANKING REPRESENTATIVE Oxygen Saturation 98% 04/25/2023 10:38 AM PERSONAL BANKING REPRESENTATIVE Inhaled Oxygen Concentration - - Weight 94.5 kg (208 lb 5.4 oz) 04/25/2023 10:38 AM PERSONAL BANKING REPRESENTATIVE Height 172.7 cm (5' 8) 04/25/2023 10:38 AM PERSONAL BANKING REPRESENTATIVE Body Mass Index 31.68 04/25/2023 10:38 AM PERSONAL BANKING REPRESENTATIVE Plan of Treatment Not on file Insurance [facility] Member Subscriber Plan / Payer (Ef fective 1899-Present) Name:Jose Yun Member ID:Not on file Relation to Subscriber:Self Name:Jose Yun Payer ID:[id number] (NAIC) Group ID:[id number] Type:ArtSetters Address: [address] [employer] Member Subscriber Plan / Payer (Ef fective 2018-Present) Name:Jose Yun Relation to Subscriber:Self Name:Jose Yun Payer ID:[id number] (NAIC) Group ID:[id number] Type:ArtSetters Address: [address] [facility] Advance Directives For more information, please contact: [phone] * Full Code (Latest Code Status on File) Date Activated Date Inactivated Comments 09/11/2018 7:17 AM 09/11/2018 8:04 PM Care Teams Quartz Orientator Relationship Specialty Start Date End Date Aurea Guaman PA PCP - General Physician Franchise Specialist 08/21/19 Celso Pugh MD Family Medicine 08/21/19
--- OUTSIDE RECORDS SUMMARY | 2024-10-12 22:43 | XMS_ITS | Clinical Summary ---
Author Organization [facility] Address [address] [place] [address] Care Team Providers Care Direct Mail Clerk Name Role Phone Aurea Guaman Primary Care Provider [phone] Celso Pugh MD Unavailable [phone] Allergies Active Allergy Reactions Criticality Noted Date [...] on file Legal Sex Male 11:08 AM NEGATIVE CLEANER Gender Identity Not on file Sexual Orientation Not on file Occupation Industry Job Start Date Job End Date [employer] Not on file Not on file Not on file Obstetrics History Last Filed Vital Signs Vital Sign Reading Time Taken Comments Blood Pressure 150/108 04/25/2023 10:38 AM NEGATIVE CLEANER Pulse 86 04/25/2023 10:38 AM NEGATIVE CLEANER Temperature 36.9 C (98.4 F) 04/25/2023 10:38 AM NEGATIVE CLEANER Respiratory Rate 16 04/25/2023 10:38 AM NEGATIVE CLEANER Oxygen Saturation 98% 04/25/2023 10:38 AM NEGATIVE CLEANER Inhaled Oxygen Concentration - - Weight 94.5 kg (208 lb 5.4 oz) 04/25/2023 10:38 AM NEGATIVE CLEANER Height 172.7 cm (5' 8) 04/25/2023 10:38 AM NEGATIVE CLEANER Body Mass Index 31.68 04/25/2023 10:38 AM NEGATIVE CLEANER Plan of Treatment Health Maintenance Due Date Last Done Comments Depression Screening 1983 Hepatitis C Screening 1983 Regular Well Visit/Exam 18-64 2001 HPV Vaccines (1 - 3-dose SCDM series) 2010 Varicella Vaccines (1 of 2 - 13+ 2-dose series) 02/17/2014 Covid-19 Vaccine ( - season) 2023 05/20/2020, 04/18/2020 Influenza Vaccine (#1) 2024 2, 01/25/2021, 03/09/2020, Additional history exists DTaP/Tdap/Td Vaccine (4 - Td or Tdap) 01/04/2032 01/03/2022, 04/22/2016, 10/24/2011, Additional history exists Hepatitis B Screening Completed 06/05/2006 , 06/27/2005, 05/27/2005 Pneumococcal vaccine <65 Aged Out No longer eligible based on patient's age to complete this topic Insurance [facility] Member Subscriber Plan / Payer (Ef fective 1899-Present) Name:Jose Yun Member ID:Not on file Relation to Subscriber:Self Name:Jose Yun Payer ID:[id number] (NAIC) Group ID:[id number] Type:InSequent Address: [address] Member Subscriber Plan / Payer (Ef fective 2018-Present) Name:Jose Yun Relation to Subscriber:Self Name:Jose Yun Payer ID:[id number] (NAIC) Group ID:[id number] Type:InSequent Address: [address] [facility] Member Subscriber Plan / Payer ( fective 2018-Present) Name:ScotttanmayJose Relation to Subscriber:Self Name:MarquisJose Payer ID:[id number] (NAIC) Group ID:[id number] Type:InSequent Address: [address] [place] Advance Directives For more information, please contact: [phone] * Full Code (Latest Code Status on File) Date Activated Date Inactivated Comments 09/11/2018 7:17 AM 09/11/2018 8:04 PM Care Teams Direct Mail Clerk Relationship Specialty Start Date End Date Aurea Guaman PA PCP - General Physician Forge Shop Machine Repairer 08/21/19 Celso Pugh MD Family Medicine 08/21/19
[2024-10-12 22:44] LABS: Alanine Aminotransferase 49 U/L (6-50); Albumin Level 4.4 g/dL (3.5-5.1); Alkaline Phosphatase 80 U/L (38-126); Anion Gap 9 mmol/L (4-12); Aspartate Amino Transferase 44 U/L (17-59); Bilirubin,Total 0.5 mg/dL (0.2-1.3); Blood Urea Nitrogen 17 mg/dL (9-20); Calcium 9.1 mg/dL (8.4-10.2); Carbon Dioxide 27 mmol/L (22-30); Chloride 97 mmol/L (98-107); Creatine Kinase 325 U/L (55-170); Estimated CRCL calculation 64 ml/min; Estimated Glomerular Filt Rate 50; Glucose 88 mg/dL (65-110); Magnesium 1.8 mg/dL (1.6-2.3); Potassium 3.7 mmol/L (3.4-5.0); Sodium 133 mmol/L (137-145); Total Protein 7.4 g/dL (6.3-8.2)
--- NOTE | 2024-10-12 23:01 | ED_ITS ---
HPI - General Adult General Chief complaint: Environmental Exposure Stated complaint: heat emergency Time Seen by Provider: 10/12/24 22:00 History of Present Illness HPI narrative: 39-year-old male with a history of hypertension, GERD, anxiety, PTSD, OCD and ADHD presents to the emergency department with significant other at bedside for concerns for dehydration. Patient states he was working outside in the yard and on the deck when he began to feel lightheaded. He states he did feel lightheaded when going from a sitting to standing position. He went inside and states he began having midsternal chest pain that occurred when he started ?panicking?. He then states his entire body ?locked up? and he has felt cramps and spasms in his hands since. He states his significant other put fans and ice on him which improved his symptoms. He reports associated nausea and headache. He states he feels like he spent last night drinking alcohol although he did not. He does admit to drinking a glass of bourbon this evening. He denies head injury or trauma, denies known syncope. He denies recent surgeries or hospitalizations, hemoptysis, history of VTE, lower extremity edema, personal cardiac history. He does endorse a family history of cardiac disease. He stopped smoking several years ago but admits to occasional cigar smoking. Related Data Home Medications ?Medication ?Instructions ?Recorded ?Confirmed ?Last Taken ?Type multivitamin with minerals-folic tablet PO 07/28/23 09/19/24 Unknown History acid 120 mcg chewable tablet (Adult Multivitamin Gummies) dextroamphetamine-amphetamine 20 20 mg PO DAILY 09/14/24 09/19/24 Unknown History mg tablet (Adderall) fluoxetine 20 mg capsule (Prozac) 20 mg PO DAILY 09/14/24 10/12/24 Unknown History Allergies Allergy/AdvReac Type Severity Reaction Status Date / Time iohexol (From contrast - CT, Allergy Severe Anaphylaxis Verified 09/19/24 09:02 X-RAY) Sulfa (Sulfonamide Allergy Severe ANAPHYLACTIC Verified 09/19/24 09:02 Antibiotics) REACTION Review of Systems 2 Review of Systems: All systems reviewed & are unremarkable except as noted in HPI and below PMFSH Past Medical History Medical History History of tick-borne disease Elevated blood pressure reading Lumbar pseudoarthrosis Elevated liver enzymes Need for lipid screening Tobacco abuse Fracture of temporal bone GERD (gastroesophageal reflux disease) Pneumonia Migraines HTN (hypertension) Surgical History Surgical History H/O Spinal surgery Hx of eye surgery Family History Family History Father Heart disease enlarged heart Mother No problems noted. Sibling A-fib Other Diabetes mellitus Family history of cardiovascular disease Hypertension Social History Social History Smoking status: Former smoker Tobacco type: cigarettes Smokeless tobacco user: chewing tobacco Second hand tobacco smoke exposure: No Alcohol intake: current Drinks per week: 7 Alcohol use details: 1 cup of bourbon per day Substance use: never Substance use type: does not use Do You Feel Safe in your Home?: Yes Lack of Transportation: No Lack of Food: Never True Current Housing: I Have Housing Concerned About Future Housing: No Difficulty Paying Gas/Electric Bills: No Difficulty Paying for Meds: No Currently Unemployed: No Education: Trade/Vocational Certificate Difficulty w/ Childcare or Family Care: No Living arrangements: with family Occupation/Education: occupation Additional occupation/education comments: [employer] Gender identity (if verbalized by the patient): Male Exam 2 Narrative: GENERAL: Anxious appearing, NAD HEAD: Normocephalic, atraumatic. EYES: PERRLA and EOMI. ENT: Nares clear, no rhinorrhea or epistaxis. Mucous membranes moist. NECK: Supple. CHEST: Clear to auscultation. No respiratory distress. HEART: Regular rate and rhythm. No murmur heard. Normal peripheral pulses. ABDOMEN: Soft, nontender, nondistended, normal active bowel sounds. EXTREMITIES: Normal range of motion. No edema. Negative Homans bilaterally SKIN: Warm, dry, no rash. NEURO: No focal deficits. Alert and oriented x3 Course Vital Signs Vital signs: Vital Signs Pulse Rate 97 10/12/24 21:55 Respiratory Rate 13 10/12/24 21:55 Blood Pressure 112/73 10/12/24 21:55 Pulse Oximetry 100 10/12/24 21:55 Oxygen Delivery Room Air 10/12/24 21:55 Temperature 97.6 F 10/13/24 01:57 Pulse Rate 60 10/13/24 01:57 Respiratory Rate 16 10/13/24 01:57 Blood Pressure 108/76 10/13/24 01:57 Pulse Oximetry 99 10/13/24 01:57 Oxygen Delivery Room Air 10/12/24 21:55 Medical Decision Making MDM Narrative Medical decision making narrative: 39-year-old male with history of anxiety, hypertension, GERD, PTSD, OCD presents to emergency department for lightheadedness after working out in the heat this evening. Patient also endorsing an episode of chest pain after ?panicking?, headache and muscle cramping. States his body ?locked up?. See HPI for further history. Triage vitals are stable. Patient is afebrile and nontoxic appearing. No lateralizing deficits. Exam is notable for the above. CBC with leukocytosis of 13.5. Chemistries with a creatinine of 1.53, most recent creatinine per chart review in 2020 was 1.3. Fluids provided. CK mildly elevated at 325. Fluids ongoing . Magnesium is normal at 1.8. Chest x-ray shows no acute cardiopulmonary disease. CT brain shows no acute intracranial process. EKG shows normal sinus rhythm with rate of 78 ppm, normal NV interval, normal QRS duration, normal QTC, no ST elevations or depressions. Troponin undetectable x2. Orthostatic vital signs are normal. CT brain shows no acute intracranial process. Perc rule for PE is negative. Patient updated on results. He received a total 2 L of fluids, Tylenol and Valium for anxiety and muscle spasms with improvement. He is ambulatory in the ED without ataxia. Suspect symptoms are due to dehydration/heat exhaustion and anxiety. Chest pain is atypical in nature and heart score is 2. Patient was advised to increase fluid intake and follow-up closely with his PCP. Discussed strict ED return precautions. Patient is agreeable with the plan verbalized understanding. Discharged in stable condition. Vital Signs Vital Signs: Vital Signs Pulse Rate 97 10/12/24 21:55 Respiratory Rate 13 10/12/24 21:55 Blood Pressure 112/73 10/12/24 21:55 Pulse Oximetry 100 10/12/24 21:55 Oxygen Delivery Room Air 10/12/24 21:55 Temperature 97.6 F 10/13/24 01:57 Pulse Rate 60 10/13/24 01:57 Respiratory Rate 16 10/13/24 01:57 Blood Pressure 108/76 10/13/24 01:57 Pulse Oximetry 99 10/13/24 01:57 Oxygen Delivery Room Air 10/12/24 21:55 Lab Data 10/12/24 22:25 10/12/24 22:25 Labs: Lab Results 10/12/24 10/12/24 10/13/24 Range/Units 22:25 23:34 01:38 WBC 13.5 H (4.5-10.0) K/mm3 RBC 4.78 (4.6-6.20) M/mm3 Hgb 14.2 (14.0-18.0) g/dL Hct 40.9 L (42.0-52.0) % MCV 85.6 (80-100) fl MCH 29.7 (26-34) pg MCHC 34.7 (32-36) g/dl RDW 12.8 (11.5-14.5) % Plt Count 257 (150-375) k/mm3 MPV 8.8 (7.4-10.4) fl Immature Gran % (Auto) 0.6 H (0-0.5) % Neut % (Auto) 83.5 H (45.5-73.1) % Lymph % (Auto) 10.6 L (18.3-44.2) % Carlisle % (Auto) 4.5 (2.6-8.5) % Eos % (Auto) 0.6 (0-4.4) % Baso % (Auto) 0.2 (0.2-1.2) % Lymph # (Auto) 1.43 (0.9-3.2) K/mm3 Carlisle # (Auto) 0.6 (0.1-0.6) K/mm3 Eos # (Auto) 0.1 (0-0.3) K/mm3 Baso # (Auto) 0.0 (0.0-0.1) K/mm3 Abs Immat Gran (auto) 0.08 H (0.00-0.031) K/mm3 Absolute Neuts (auto) 11.2 H (1.3-6.7) K/mm3 Absolute Nucleated RBC 0.000 (0.0-0.012) K/mm3 Nucleated RBC % 0.0 (0.0-0.2) % PT 13.0 (11.1-14.7) Seconds INR 1.0 APTT 22.2 L (22.3-36.8) Seconds Sodium 133 L (137-145) mmol/L Potassium 3.7 (3.4-5.0) mmol/L Chloride 97 L (98-107) mmol/L Carbon Dioxide 27 (22-30) mmol/L Anion Gap 9 (4-12) mmol/L BUN 17 (9-20) mg/dL Creatinine 1.53 H (0.7-1.3) mg/dL Estim Creat Clear Calc 64 ml/min Estimated GFR 50 L (59 - ) Glucose 88 (65-110) mg/dL Calcium 9.1 (8.4-10.2) mg/dL Magnesium 1.8 (1.6-2.3) mg/dL Total Bilirubin 0.5 (0.2-1.3) mg/dL AST 44 (17-59) U/L ALT 49 (6-50) U/L Alkaline Phosphatase 80 (38-126) U/L Total Creatine Kinase 325 H (55-170) U/L Troponin I < 0.012 (0.000-0.034) ng/mL Total Protein 7.4 (6.3-8.2) g/dL Albumin 4.4 (3.5-5.1) g/dL Lipase 112 (23-300) U/L Urine Color Yellow (Yellow) Urine Appearance Clear (Clear) Urine pH 6.5 (5.0-9.0) Ur Specific [place] 1.018 (1.001-1.035) Urine Protein 1+ H (Negative) mg/dL Urine Glucose (UA) Negative (Negative) mg/dL Urine Ketones 1+ H (Negative) mg/dL Ur Blood (Man) Negative (Negative) Urine Nitrate Negative (Negative) Urine Bilirubin Negative (Negative) Urine Urobilinogen 0.2 (<2.0) mg/dL Add Ur Microanalysis Reviewed Leukocyte Esterase Rfl Negative (Negative) GEO/UL Urine RBC 0-2 (0-2) /hpf Urine WBC 0-5 (0-3) /hpf Ur Squamous Epith Cells None seen (Few) /hpf Urine Bacteria None seen /hpf Urine Casts 11-20 Hyaline Casts Present (None) /lpf Urine Mucus Present /lpf Ethyl Alcohol < 10 (<10) mg/dL 10/13/24 Range/Units 02:02 WBC (4.5-10.0) K/mm3 RBC (4.6-6.20) M/mm3 Hgb (14.0-18.0) g/dL Hct (42.0-52.0) % MCV (80-100) fl MCH (26-34) pg MCHC (32-36) g/dl RDW (11.5-14.5) % Plt Count (150-375) k/mm3 MPV (7.4-10.4) fl Immature Gran % (Auto) (0-0.5) % Neut % (Auto) (45.5-73.1) % Lymph % (Auto) (18.3-44.2) % Carlisle % (Auto) (2.6-8.5) % Eos % (Auto) (0-4.4) % Baso % (Auto) (0.2-1.2) % Lymph # (Auto) (0.9-3.2) K/mm3 Carlisle # (Auto) (0.1-0.6) K/mm3 Eos # (Auto) (0-0.3) K/mm3 Baso # (Auto) (0.0-0.1) K/mm3 Abs Immat Gran (auto) (0.00-0.031) K/mm3 Absolute Neuts (auto) (1.3-6.7) K/mm3 Absolute Nucleated RBC (0.0-0.012) K/mm3 Nucleated RBC % (0.0-0.2) % PT (11.1-14.7) Seconds INR APTT (22.3-36.8) Seconds Sodium (137-145) mmol/L Potassium (3.4-5.0) mmol/L Chloride (98-107) mmol/L Carbon Dioxide (22-30) mmol/L Anion Gap (4-12) mmol/L BUN (9-20) mg/dL Creatinine (0.7-1.3) mg/dL Estim Creat Clear Calc ml/min Estimated GFR (59 - ) Glucose (65-110) mg/dL Calcium (8.4-10.2) mg/dL Magnesium (1.6-2.3) mg/dL Total Bilirubin (0.2-1.3) mg/dL AST (17-59) U/L ALT (6-50) U/L Alkaline Phosphatase (38-126) U/L Total Creatine Kinase (55-170) U/L Troponin I < 0.012 (0.000-0.034) ng/mL Total Protein (6.3-8.2) g/dL Albumin (3.5-5.1) g/dL Lipase (23-300) U/L Urine Color (Yellow) Urine Appearance (Clear) Urine pH (5.0-9.0) Ur Specific [place] (1.001-1.035) Urine Protein (Negative) mg/dL Urine Glucose (UA) (Negative) mg/dL Urine Ketones (Negative) mg/dL Ur Blood (Man) (Negative) Urine Nitrate (Negative) Urine Bilirubin (Negative) Urine Urobilinogen (<2.0) mg/dL Add Ur Microanalysis Leukocyte Esterase Rfl (Negative) GEO/UL Urine RBC (0-2) /hpf Urine WBC (0-3) /hpf Ur Squamous Epith Cells (Few) /hpf Urine Bacteria /hpf Urine Casts Hyaline Casts (None) /lpf Urine Mucus /lpf Ethyl Alcohol (<10) mg/dL Discharge Plan Discharge Clinical Impression: Dehydration, Anxiety, Lightheadedness, Atypical chest pain Patient Disposition: Home Condition: Stable Instructions: Antibiotic Form, Chest Pain (DC), Dehydration (DC) Additional Instructions: Please make sure to drink plenty of fluids including water, Gatorade and Pedialyte. Follow-up closely with her primary care provider have your labs redrawn within the next week to ensure your kidney function is return to normal. Return to the emergency department if you develop worsening or changing chest pain, shortness of breath, loss of consciousness, you are unable to tolerate food or fluids, or other concerning symptoms. Patient Language: Pashto Prescriptions: No Action multivit with min-folic acid [Adult Multivitamin Gummies] 120 mcg tablet,chewable PO dextroamphetamine-amphetamine [Adderall] 20 mg tablet 20 mg PO DAILY fluoxetine [Prozac] 20 mg capsule 20 mg PO DAILY hydroxyzine HCl 25 mg tablet 25 mg PO TID PRN (Reason: anxiety) Qty: 30 1RF cyclobenzaprine 10 mg tablet 10 mg PO TID PRN (Reason: muscle spasm) Qty: 90 2RF albuterol sulfate 90 mcg/actuation HFA aerosol inhaler 1 inh inhalation Q4H PRN (Reason: bronchospasm) Qty: 6.7 3RF esomeprazole magnesium 20 mg capsule,delayed release(DR/EC) 20 mg PO DAILY Qty: 90 0RF budesonide-formoterol [Symbicort] 80-4.5 mcg/actuation HFA aerosol inhaler 2 puff inhalation Q12H Qty: 10.2 0RF alprazolam 0.25 mg tablet 0.25 mg PO TID PRN (Reason: anxiety) Qty: 14 0RF lisinopril 20 mg tablet 20 mg PO ONCE Qty: 90 2RF Follow-up/Referrals: Celso Pugh MD [Primary Care Provider] - Quality HEART score for chest pain patients History: slightly suspicious ECG: normal Age: < or = to 45 years Risk factors: > or = to 3 risk factors of atherosclerotic disease Troponin: < or = to 1x normal limit Heart score: 2
[2024-10-12] MEDS: ACETAMINOPHEN 500 MG TABLET 1000 MG PO (23:20)
[2024-10-12] MEDS: diazePAM INJ (*CRX) 10 MG/2 ML SYRINGE 5 MG IV PUSH (23:22)
[2024-10-13 00:53] LABS: Lipase 112 U/L (23-300)
[2024-10-13 01:03] LABS: INR 1.0; Partial Thromboplastin Time 22.2 Seconds (22.3-36.8); Prothrombin Time 13.0 Seconds (11.1-14.7)
[2024-10-13 01:06] LABS: Troponin I < 0.012 ng/mL (0.000-0.034)
[2024-10-13 01:30] VITALS: BP 118/69; PULSE 64
[2024-10-13 01:31] VITALS: BP 118/80; PULSE 76
[2024-10-13 01:33] VITALS: BP 112/79; PULSE 85
[2024-10-13 01:54] LABS: Add Urine Microscopic? YES; Appearance Urine Clear (Clear); Glucose Urine UA Negative (Negative); Leukocyte Esterase Ur Negative LEU/UL (Negative); Need Manual Microscopic Reviewed; Nitrate Urine Negative (Negative); Specific Grav Ur 1.018 (1.001-1.035)
[2024-10-13 01:57] VITALS: BP 108/76; PULSE 60; RESP 16; TEMP 36.4; O2SAT 99
--- NOTE | 2024-10-13 01:58 | ECG_ITS ---
Test Date: 2024-10-13 02:02:54 Measurements Intervals [place] Rate: 62 P: 49 WI: 136 QRS: 33 QRSD: 108 T: 25 QT: 451 QTc: 460 Interpretive Statements SINUS RHYTHM Compared to ECG 10/12/2024 22:06:13 No significant changes Electronically Signed On 10-14-2024 18:28:13 CDT by Benedict Gaspar M.D.
[2024-10-13] MEDS: ONDANSETRON INJ 4 MG/2 ML VIAL IV PUSH (02:18)
[2024-10-13 02:31] LABS: Troponin I < 0.012 ng/mL (0.000-0.034)
[2024-10-13 03:03] VITALS: BP 126/77; PULSE 70; RESP 16; O2SAT 97
== END 2024-10-13 03:15 | disposition home or self-care (01) ==
PROVIDERS: Emergency Provider Physician Assistant; PCP Family Medicine
DX: E86.0 Dehydration (principal); F41.9 Anxiety disorder, unspecified; R07.89 Other chest pain; R42 Dizziness and giddiness; I10 Essential (primary) hypertension; K21.9 Gastro-esophageal reflux disease without esophagitis; F90.9 Attention-deficit hyperactivity disorder, unspecified type; Z87.891 Personal history of nicotine dependence
CPT/HCPCS: 36415; 70450; 71045; 80053; 81001; 82077; 82550; 83690; 83735; 84484; 85025; 85610; 85730; 93005; 96361; 96374; 96375; 99284; A9270; J2405; J3360; J7030